=== PATIENT | female | born 1960 | race Caucasian/White ===

== ENCOUNTER 2016-12-12 06:12 | Outpatient (CLI) | payer OTHER ==
[2016-12-12] MEDS ORDERED: IOPAMIDOL-300 50 ML VIAL PO ONE (07:33)
[2016-12-12] MEDS ORDERED: IOPAMIDOL-300 100 ML VIAL IVP ONE (07:33)
--- NOTE | 2016-12-12 10:59 | CT Report ---
CT OF THE ABDOMEN AND PELVIS WITH CONTRAST: 12/12/2016 CLINICAL INDICATION: Weight loss, fatigue, left-sided pain. TECHNIQUE: Axial CT images of the abdomen and pelvis were obtained with 100 mL of Isovue-300 intraven ously as well as oral contrast. No previous CT is available for comparison. FINDINGS: Limited evaluation of the lung bases appears unremarkable. ABDOMEN: The liver, pancreas, kidneys and adrenal glands appear unremarkable. The spleen demonstrates calcifications of old granulomatous disease. A calcified gallstone is seen in an otherwise unremarka ble gallbladder. No bowel dilatation, free gas, or free fluid is present. No abdominal adenopathy is seen. PELVIS: The pelvic organs appear unremarkable No pelvic adenopathy or free fluid is present. The appe ndix is seen in the right lower quadrant, and is normal in caliber. No free fluid or pelvic adenopath y is identified. The osseous structures demonstrate degenerative and postsurgical changes. IMPRESSION: NO EVIDENT ETIOLOGY FOR PATIENT'S WEIGHT LOSS AND ABDOMINAL PAIN. CHOLELITHIASIS. In accordance with CT protocol optimization, one or more of the following dose reduction techniques w ere utilized for this exam: automated exposure control, adjustment of mA and/or KV based on patient size, or use of iterative reconstructive technique. JOB #: [id number] EXT JOB #:[id number]
== END 2016-12-12 06:13 | disposition home or self-care (01) ==
LOC: DI 06:12
PROVIDERS: ATTEND Physician Assistant Medical
DX: R10.12 Left upper quadrant pain (principal); R10.32 Left lower quadrant pain; R63.4 Abnormal weight loss; R53.83 Other fatigue; K80.20 Calculus of gallbladder without cholecystitis without obstruction
CPT/HCPCS: 74177; Q9967

== ENCOUNTER 2016-12-29 10:16 | Outpatient (CLI) | payer MEDICAID ==
--- NOTE | 2017-01-01 12:48 | Mammography Report ---
DIGITAL SCREENING MAMMOGRAM: 12/29/2016 CLINICAL INDICATION: A 56-year-old for screening. COMPARISON: Films from [place], [place] dated 09/14/2014. TECHNIQUE: Routine CC and MLO projections were obtained of the breasts as well as bilateral laterall y exaggerated craniocaudal views. FINDINGS: The breasts demonstrate heterogeneously dense fibroglandular parenchyma bilaterally. [place] bro, typically benign calcifications are present. No suspicious masses, clustered microcalcificatio ns, or regions of architectural distortion are identified. IMPRESSION: BENIGN FINDINGS. RECOMMENDATION: Routine annual screening unless otherwise clinically indicated. BIRADS CATEGORY 2 - BENIGN FINDINGS. STANDARD QUALIFYING STATEMENTS 1. This examination was reviewed with the aid of Computer-Aided Detection (CAD). 2. A negative or benign imaging report should not delay biopsy if clinically suspicious findings are present. Consider surgical consultation if warranted. More than 5% of cancers are not identified by i maging. 3. Dense breasts may obscure an underlying neoplasm. JOB #: [id number] EXT JOB #:[id number]
== END 2016-12-29 10:17 | disposition home or self-care (01) ==
LOC: DI.S 10:16
PROVIDERS: ATTEND Physician Assistant Medical
DX: Z12.31 Encounter for screening mammogram for malignant neoplasm of breast (principal)
CPT/HCPCS: 77067

== ENCOUNTER 2017-07-30 14:57 | Outpatient (CLI) | payer OTHER ==
[2017-07-30 17:51] LABS: BASOPHILS % (AUTO) 0.5 %; EOSINOPHILS # (AUTO) 0.1 10^3/uL (0.0-0.7); HGB - HEMOGLOBIN 13.5 g/dL (12.0-16.0); LYMPHOCYTES # (AUTO) 1.3 10^3/uL (1.5-3.5); MEAN CORPUSCULAR HEMOGLOBIN 30.2 pg (27.0-31.0); MEAN CORPUSCULAR HGB CONC 33.4 g/dL (32.0-36.0); MEAN CORPUSCULAR VOLUME 90.5 fL (81.0-99.0); MEAN PLATELET VOLUME 7.4 fL (7.9-10.8); MONOCYTES # (AUTO) 0.3 10^3/uL (0.0-1.0); MONOCYTES % (AUTO) 6.3 %; NEUTROPHILS # (AUTO) 3.7 10^3/uL (1.5-6.6); NEUTROPHILS % (AUTO) 67.2 %; PLT - PLATELET COUNT 358 10^3/uL (130-450); RED BLOOD COUNT 4.47 10^6/uL (4.20-5.40); RED CELL DISTRIBUTION WIDTH 12.9 % (12.0-15.0); WHITE BLOOD COUNT 5.5 x10^3/uL (4.8-10.8)
[2017-07-30 18:21] LABS: ALBUMIN 4.4 g/dL (3.2-5.5); ALBUMIN/GLOBULIN RATIO 1.6 (1.0-2.2); BILIRUBIN,TOTAL 0.3 mg/dL (0.2-1.0); CALCIUM 9.2 mg/dL (8.5-10.3); CREATININE 0.7 mg/dL (0.4-1.0); TOTAL PROTEIN 7.2 g/dL (6.7-8.2)
== END 2017-07-30 14:58 | disposition home or self-care (01) ==
LOC: LAB.R 14:57
PROVIDERS: ATTEND Physician Assistant Medical
DX: Z01.812 Encounter for preprocedural laboratory examination (principal); M18.11 Unilateral primary osteoarthritis of first carpometacarpal joint, right hand
CPT/HCPCS: 80053; 85025

== ENCOUNTER 2018-07-18 12:28 | Emergency (ER) | payer OTHER ==
[2018-07-18] MEDS ORDERED: HYDROmorphone 1 MG/ML CARPUJECT IVP STA ×2 (13:07→16:00)
[2018-07-18] MEDS ORDERED: SODIUM CHLORIDE 0.9% 1,000 ML IV ONE (13:07)
[2018-07-18] MEDS ORDERED: METOCLOPRAMIDE 10 MG/2 ML VIAL IVP STA (13:08)
--- NOTE | 2018-07-18 13:11 | ED Physician Documentation ---
PD HPI HEADACHE - Stated complaint Stated Complaint: HEADACHE INTO NECK/POST OP - Chief complaint Chief Complaint: Heent - History obtained from History obtained from: Patient - History of Present Illness Timing - onset: Last night (This is a 57-year-old woman who had a toe surgery couple of days ago. Postoperatively her course was complicated with what sounds like bradycardia and she was referred to the emergency department there and had what sounds like a pulmonary embolism CT which was negative. She is on postoperative Lovenox. She had a very mild headache when she went to bed last night but then was awoken by a more severe headache at 3 AM. It is an occipital headache. It feels like throbbing. She is light sensitive and nauseous but has not vomited. Initially she says it was the worst headache of her life but then also admits that she had a similar headache 8 years ago. 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 She was on Coumadin for a while. She is not on blood thinners now chronically but again is on postoperative prophylactic Lovenox once a day.) Review of Systems Constitutional: reports: Reviewed and negative Throat: reports: Reviewed and negative Cardiac: reports: Reviewed and negative Respiratory: reports: Reviewed and negative GI: reports: Abdominal Pain (mild LUQ), Nausea. 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 Cardiovascular: Vascular surgery - Present Medications Home Medications: Ambulatory Orders Medication Instructions Recorded Confirmed Enoxaparin [Lovenox] 07/18/18 Hydrocodone/Acetaminophen 1 - 2 each PO Q6H PRN #14 tablet 07/18/18 [Hydrocodon-Acetaminophen 5-325] Metoclopramide [Reglan] 10 mg PO Q6H PRN #20 tablet 07/18/18 oxyCODONE [Roxicodone] 07/18/18 - Allergies Allergies/Adverse Reactions: Allergies Allergy/AdvReac Type Severity Reaction Status Date / Time No Known Drug Allergies Allergy Verified 07/18/18 12:40 - Social History Does the pt smoke?: No Smoking Status: Never smoker Does the pt drink ETOH?: Yes Does the pt have substance abuse?: Yes - Family History Family history: reports: Non contributory - Immunizations Immunizations are current?: Yes PD ED PE NORMAL - Vitals Vital signs reviewed: Yes - General General: Alert and oriented X 3, No acute distress - HEENT HEENT: PERRL, EOMI - Neck Neck: Supple, no meningeal sign, No bony TTP - Cardiac Cardiac: RRR, No murmur - Respiratory Respiratory: No respiratory distress, Clear bilaterally - Abdomen Abdomen: Normal bowel sounds, Soft, Non tender - Back Back: No CVA TTP, No spinal TTP - Derm Derm: Normal color, Warm and dry - Extremities Extremities: Other (RLE in boot/wrap) - Neuro Neuro: Alert and oriented X 3, Normal speech Results - Vitals Vitals: Vital Signs - 24 hr 07/18/18 07/18/18 12:34 15:18 Temperature 36.5 C Heart Rate 73 50 L Respiratory 20 14 Rate Blood Pressure 144/49 H 135/75 H O2 Saturation 97 98 Oxygen O2 Source Room air - EKG (time done) 1251 Rate: Rate (enter#) (63) Rhythm: NSR [place]: Normal Intervals: Other (IVCD QRSd 127msec) Ischemia: Non specific changes Computer interpretation: Agree with computer - Labs Labs: Laboratory Tests 07/18/18 07/18/18 07/18/18 13:00 13:00 13:00 WBC 8.4 RBC 4.08 L Hgb 12.6 Hct 35.8 L MCV 87.7 MCH 30.8 MCHC 35.1 RDW 12.9 Plt Count 259 MPV 7.0 L Neut # (Auto) 6.2 Lymph # (Auto) 1.6 [place] # (Auto) 0.4 Eos # (Auto) 0.1 Baso # (Auto) 0.0 Absolute Nucleated RBC 0.00 Nucleated RBC % 0.0 PT 11.4 INR 1.0 Sodium 138 Potassium 3.7 Chloride 103 Carbon Dioxide 27 Anion Gap 8.0 BUN 8 Creatinine 0.5 Estimated GFR (MDRD) 127 Glucose 102 H Calcium 9.1 Total Bilirubin 0.5 AST 22 ALT 15 Alkaline Phosphatase 66 Total Protein 6.5 L Albumin 3.8 Globulin 2.7 Albumin/Globulin Ratio 1.4 Lipase 29 - Rads (name of study) CTA Head and neck Radiology: EMP read contemporaneously (No acute abnormalities, no subarachnoid hemorrhage. There is a possible aneurysm at the basilar tip measuring 4.4 x 5.9 x 5.2 mm and an infundibulum or small aneurysms from the right supraclinoid ICA.) PD MEDICAL DECISION MAKING - ED course ED course: This is a 57-year-old woman who just had surgery for her foot who presents with a headache. Is not the worst of her life. The pattern is hard to get from her, she says it was abrupt in onset and woke her up at 3 AM but admits she went to bed with a headache 2. There is a small aneurysm potentially from the basilar tip and follow-up with neurology/neurosurgery was recommended for confirmation as the radiologist was not convinced it was not variant anatomy. Departure - Departure Disposition: 01 Home, Self Care Clinical Impression: Basilar artery aneurysm Headache Qualifiers: Headache type: tension-type Headache chronicity pattern: acute headache Intractability: not intractable Qualified Code(s): G44.209 - Tension-type headache, unspecified, not intractable Condition: Good Record reviewed to determine appropriate education?: Yes Instructions: ED Cephalgia Unspecified Prescriptions: Hydrocodone/Acetaminophen [Hydrocodon-Acetaminophen 5-325] 1 - 2 each PO Q6H PRN #14 tablet PRN Reason: pain Metoclopramide [Reglan] 10 mg PO Q6H PRN #20 tablet PRN Reason: nausea or headache Comments: As discussed you should follow-up with your primary care for physician for referral to a neurologist or neurosurgeon. The radiologist felt she may have a 4.4 x 5.9 x 5.2 mm aneurysm of the basilar artery. There is no evidence of complication of this today. Will probably need a confirmatory study such as an MR angiogram. Return for new or worsening symptoms.
[2018-07-18 13:14] LABS: BASOPHILS % (AUTO) 0.4 %; EOSINOPHILS # (AUTO) 0.1 10^3/uL (0.0-0.7); EOSINOPHILS % (AUTO) 1.3 %; HGB - HEMOGLOBIN 12.6 g/dL (12.0-16.0); LYMPHOCYTES # (AUTO) 1.6 10^3/uL (1.5-3.5); MEAN CORPUSCULAR HEMOGLOBIN 30.8 pg (27.0-31.0); MEAN CORPUSCULAR HGB CONC 35.1 g/dL (32.0-36.0); MEAN CORPUSCULAR VOLUME 87.7 fL (81.0-99.0); MONOCYTES # (AUTO) 0.4 10^3/uL (0.0-1.0); NEUTROPHILS # (AUTO) 6.2 10^3/uL (1.5-6.6); NEUTROPHILS % (AUTO) 74.3 %; PLT - PLATELET COUNT 259 10^3/uL (130-450); RED BLOOD COUNT 4.08 10^6/uL (4.20-5.40); RED CELL DISTRIBUTION WIDTH 12.9 % (12.0-15.0); WHITE BLOOD COUNT 8.4 x10^3/uL (4.8-10.8)
[2018-07-18 13:21] LABS: PT - PROTHROMBIN TIME 11.4 secs (9.9-12.6)
[2018-07-18] MEDS ORDERED: IOVERSOL 320 100 ML VIAL IVP ONE ×2 (13:22→17:59)
[2018-07-18 13:24] LABS: ALBUMIN 3.8 g/dL (3.2-5.5); ALBUMIN/GLOBULIN RATIO 1.4 (1.0-2.2); BILIRUBIN,TOTAL 0.5 mg/dL (0.2-1.0); CALCIUM 9.1 mg/dL (8.5-10.3); CREATININE 0.5 mg/dL (0.4-1.0); TOTAL PROTEIN 6.5 g/dL (6.7-8.2)
--- NOTE | 2018-07-18 15:46 | CT Report ---
Reason: Headache Procedure Date: 07/18/2018 Accession Number: [id number] / [id number] Procedure: CT - Head Angio CPT Code: FULL RESULT: EXAM: CT ANGIOGRAM HEAD AND NECK. CT SCAN HEAD WITHOUT AND WITH CONTRAST. EXAM DATE: 07/18/2018 01:55 PM. CLINICAL HISTORY:Headache. COMPARISON:None. TECHNIQUE: Routine axial helical CTA imaging was performed from the aortic arch through the [place] of [place]. Routine axial CT imaging of the head was performed prior to and following contrast administration. Reconstructions: Routine multiplanar 3D MIP reconstructions. IV contrast: OPTI 320 80 mL. NASCET Criteria are used for stenosis measurements. In accordance with CT protocol optimization, one or more of the following dose reduction techniques were utilized for this exam: automated exposure control, adjustment of mA and/or KV based on patient size, or use of iterative reconstructive technique. FINDINGS: CT SCAN HEAD: Parenchyma: No intraparenchymal hemorrhage. No evidence of mass, midline shift, or CT findings of acute infarction. Barry-white differentiation is distinct. Extraaxial Spaces: Normal for age. No subdural or epidural collections identified. Ventricles: Normal in size and position. Sinuses and Orbits: Imaged paranasal sinuses, orbits, and mastoids show no significant abnormality. Bones: No evidence of fracture or calvarial defect. Other: Minimal vascular calcifications of the cavernous ICA segments. CT ANGIOGRAM HEAD AND NECK: The aortic arch appears normal. The left common carotid artery appears to arise from the right brachiocephalic artery. RIGHT: Common Carotid Artery: Patent without significant stenosis. Carotid Bulb: There is no significant atherosclerotic plaque at the bifurcation and siphon. Stenosis at the bifurcation by NASCET criteria: No significant stenosis. Internal Carotid Artery: Tortuosity of the cervical ICA with no high-grade stenosis or dissection seen. Minimal vascular calcifications of the cavernous ICA segments with no high-grade stenosis. There is an inferomedially projecting outpouching arising from the right supraclinoid ICA measuring 1.3 x 1.9 mm (series 2, image 439). External Carotid Artery: Unremarkable. Vertebral Artery: Patent without significant stenosis. No evidence of dissection. No aneurysm. Anterior Cerebral Artery: Patent without significant stenosis, aneurysm, or vascular malformation. Middle Cerebral Artery: Patent without significant stenosis, aneurysm, or vascular malformation. Posterior Cerebral Artery: Patent without significant stenosis, aneurysm, or vascular malformation. Posterior Communicating Artery: Patent. No aneurysm. LEFT: Common Carotid Artery: Patent without significant stenosis. Carotid Bulb: There is no significant atherosclerotic plaque at the bifurcation and siphon. Stenosis at the bifurcation by NASCET criteria: No significant stenosis. Internal Carotid Artery: Tortuosity of the cervical ICA with no high-grade stenosis or dissection seen. Minimal vascular calcifications of the cavernous ICA segments with no high-grade stenosis. No evidence of aneurysm along the intracranial ICA. External Carotid Artery: Unremarkable. Vertebral Artery: Patent without significant stenosis. No evidence of dissection. No aneurysm. Anterior Cerebral Artery: Patent without significant stenosis, aneurysm, or vascular malformation. Middle Cerebral Artery: Patent without significant stenosis, aneurysm, or vascular malformation. Posterior Cerebral Artery: Patent without significant stenosis, aneurysm, or vascular malformation. Posterior Communicating Artery: Patent. No aneurysm. CENTRAL: Anterior Communicating Artery: Patent. No aneurysm. Basilar Artery: There is a bulbous appearance to the basilar tip measuring 4.4 x 5.9 x 5.2 cm (CC by TR by AP). DURAL VENOUS SINUSES AND MAJOR CENTRAL VEINS: Patent. OTHER: The visualized pharynx and larynx appear normal. Major salivary glands appear normal. Thyroid gland appears normal. No cervical lymphadenopathy or necrotic lymph nodes seen. Soft tissues of the neck appear normal. Pleural parenchymal scarring of the visualized lung apices. There appears to be dependent atelectatic changes. No definite pulmonary nodule or mass seen. Postsurgical changes of C5-C7 ACDF as well as C5-C6 and C6-C7 diskectomy with interbody fusion graft placement. No acute fracture or traumatic subluxation of the cervical spine. Shortening of the normal cervical lordosis. Multilevel degenerative changes. No suspicious osseous lesion. POST-CONTRAST HEAD: No abnormal enhancement. IMPRESSION: CT SCAN HEAD: 1. No definite acute intracranial pathology seen; specifically no acute infarct, acute intracranial hemorrhage, mass, hydrocephalus, or midline shift. No abnormal postcontrast enhancement. If there is clinical concern for acute stroke or symptoms persist an MR brain could be considered to evaluate for small or subtle pathology. ASPECTS: 10R/10L CT ANGIOGRAM NECK: 1. Vasculature of the neck demonstrates no significant stenosis or dissection. CT ANGIOGRAM HEAD: 1. No large vessel occlusion. 2. There is a bulbous appearance to the basilar tip measuring 4.4 x 5.9 x 5.2 cm (cc by TR by AP). Finding suspicious for potential aneurysm. 3. There is an inferomedially projecting outpouching arising from the right supraclinoid ICA measuring 1.3 x 1.9 mm (series 2, image 439). Finding may represent infundibulum though a small aneurysm cannot be entirely excluded. 4. No definite intracranial arterial stenosis seen. OTHER 1. Postsurgical changes of C5-C7 ACDF as well as C5-C6 and C6-C7 diskectomy with interbody fusion graft placement. [facility] ADDENDUM: 07/18/18 15:54 IMPRESSION: CT SCAN HEAD: 1. No definite acute intracranial pathology seen; specifically no acute infarct, acute intracranial hemorrhage, mass, hydrocephalus, or midline shift. No abnormal postcontrast enhancement. If there is clinical concern for acute stroke or symptoms persist an MR brain could be considered to evaluate for small or subtle pathology. ASPECTS: 10R/10L CT ANGIOGRAM NECK: 1. Vasculature of the neck demonstrates no significant stenosis or dissection. CT ANGIOGRAM HEAD: 1. No large vessel occlusion. 2. There is a bulbous appearance to the basilar tip measuring 4.4 x 5.9 x 5.2 mm(cc by TR by AP). Finding suspicious for potential aneurysm. 3. There is an inferomedially projecting outpouching arising from the right supraclinoid ICA measuring 1.3 x 1.9 mm (series 2, image 439). Finding may represent infundibulum though a small aneurysm cannot be entirely excluded. 4. No definite intracranial arterial stenosis seen. OTHER 1. Postsurgical changes of C5-C7 ACDF as well as C5-C6 and C6-C7 diskectomy with interbody fusion graft placement. Findings discussed with Dr Koch at 1555 hs on 07/18/2017 [facility]
[2018-07-18 16:30] VITALS: BP 125/66
== END 2018-07-18 16:30 | disposition home or self-care (01) ==
LOC: ED 12:28
DX: I72.5 Aneurysm of other precerebral arteries (principal); G44.209 Tension-type headache, unspecified, not intractable; Z98.890 Other specified postprocedural states
CPT/HCPCS: 36415; 70496; 70498; 80053; 83690; 85025; 85610; 93005; 96361; 96374; 96376; 99284; J1170; J2765; Q9967

== ENCOUNTER 2019-03-18 17:50 | Emergency (ER) | payer OTHER ==
[2019-03-18 17:58] VITALS: BP 131/97
--- NOTE | 2019-03-18 18:09 | ED Physician Documentation ---
History of Present Illness - Stated complaint Stated Complaint: FALL/HEAD INJURY - Chief complaint Chief Complaint: General - History obtained from History obtained from: Patient - History of Present Illness Timing: Today (About 4 hours ago she tripped over dog and fell backwards hitting the back of her head on asphalt. There is no loss of consciousness, no headache, no vomiting. She also has a scrape on her left elbow. No other injuries. Tetanus is up-to-date. She has a lump on the back of her head, no other acute complaints.) Review of Systems Constitutional: denies: Fever, Chills Eyes: denies: Loss of vision, Decreased vision, Photophobia Ears: denies: Loss of hearing, Ear pain Nose: denies: Rhinorrhea / runny nose, Epistaxis GI: denies: Nausea, Vomiting PD PAST MEDICAL HISTORY - Past Medical History Cardiovascular: Other Respiratory: None, Other Endocrine/Autoimmune: None GI: Other HEENT: None Psych: Depression Musculoskeletal: Osteoarthritis - Past Surgical History Past Surgical History: Yes General: Appendectomy, Other Ortho: Carpal Tunnel surgery, Spine surgery, 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 Cardiovascular: Vascular surgery - Present Medications Home Medications: Ambulatory Orders Medication Instructions Recorded Confirmed Enoxaparin [Lovenox] 07/18/18 Hydrocodone/Acetaminophen 1 - 2 each PO Q6H PRN #14 tablet 07/18/18 [Hydrocodon-Acetaminophen 5-325] Metoclopramide [Reglan] 10 mg PO Q6H PRN #20 tablet 07/18/18 oxyCODONE [Roxicodone] 07/18/18 - Allergies Allergies/Adverse Reactions: Allergies Allergy/AdvReac Type Severity Reaction Status Date / Time No Known Drug Allergies Allergy Verified 03/18/19 17:58 - Social History Does the pt smoke?: No Smoking Status: Never smoker Does the pt drink ETOH?: Yes Does the pt have substance abuse?: Yes - Immunizations Immunizations are current?: Yes PD ED PE NORMAL - Vitals Vital signs reviewed: Yes - General General: Alert and oriented X 3, No acute distress - HEENT HEENT: PERRL, EOMI, Other (She has a firm hematoma on the occiput, no skull tenderness.) - Neck Neck: Supple, no meningeal sign, No bony TTP - Extremities Extremities: Other (There is a small nickel sized abrasion over the elbow without tenderness or limited range of motion) - Neuro Neuro: Alert and oriented X 3, 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 Really nothing to suggest the need for advanced imaging. Watchful waiting was advised. Her elbow abrasion was cleansed and bandaged. Departure - Departure Disposition: 01 Home, Self Care Clinical Impression: Contusion of occipital region of scalp Qualifiers: Encounter type: initial encounter Qualified Code(s): S00.03XA - Contusion of scalp, initial encounter Abrasion of left elbow Qualifiers: Encounter type: initial encounter Qualified Code(s): S50.312A - Abrasion of left elbow, initial encounter Condition: Good Record reviewed to determine appropriate education?: Yes Instructions: ED Wound Care, ED Head Injury Closed Comments: If you develop a headache, nausea, or other new symptoms please return immediately for reevaluation.
== END 2019-03-18 18:00 | disposition home or self-care (01) ==
LOC: ED 17:50
DX: S00.03XA Contusion of scalp, initial encounter (principal); S50.312A Abrasion of left elbow, initial encounter; W01.198A Fall on same level from slipping, tripping and stumbling with subsequent striking against other object, initial encounter; Y92.008 Other place in unspecified non-institutional (private) residence as the place of occurrence of the external cause
CPT/HCPCS: 99281; 99282

== ENCOUNTER 2019-04-18 12:56 | Emergency (ER) | payer OTHER ==
--- NOTE | 2019-04-18 13:25 | XRAY Report ---
Reason: cough Procedure Date: 04/18/2019 Accession Number: [id number] / [id number] Procedure: XR - Chest 2 View X-Ray CPT Code: 73980 FULL RESULT: EXAM: CHEST RADIOGRAPHY EXAM DATE: 04/18/2019 01:13 PM. CLINICAL HISTORY: Cough. COMPARISON: CHEST 1 VIEW 11/07/2015 1:19 PM. TECHNIQUE: 2 views. FINDINGS: Lungs/Pleura: Increased lung markings. Central bronchial cuffing. No focal opacity. No effusions. Mediastinum: Stable Other: ACDF IMPRESSION: Increased lung markings with central bronchial cuffing may be due to reactive airways disease or bronchitis [facility]
[2019-04-18] MEDS ORDERED: BACITRACIN ZINC OINT 14 GM TOP ONE (14:08)
--- NOTE | 2019-04-18 14:45 | ED Physician Documentation ---
PD HPI URI - Stated complaint Stated Complaint: SOA/CHEST PX/COUGH - Chief complaint Chief Complaint: Resp - History obtained from History obtained from: Patient - History of Present Illness Timing - onset: Today (58-year-old woman was caring for her sick grandmother who has pneumonia. She became suddenly sick yesterday with a nonproductive cough, sharp central chest pain when she coughs and shortness of breath. No fevers. She has no underlying heart or lung disease. 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 Cardiovascular: Vascular surgery - Present Medications Home Medications: Ambulatory Orders Medication Instructions Recorded Confirmed Enoxaparin [Lovenox] 07/18/18 Hydrocodone/Acetaminophen 1 - 2 each PO Q6H PRN #14 tablet 07/18/18 [Hydrocodon-Acetaminophen 5-325] Metoclopramide [Reglan] 10 mg PO Q6H PRN #20 tablet 07/18/18 oxyCODONE [Roxicodone] 07/18/18 Albuterol Sulf [Ventolin Hfa 1 - 2 puffs INH Q4HR PRN #1 inhaler 04/18/19 Inhaler] Azithromycin [Zithromax] 1 tab PO DAILY #6 tablet 04/18/19 guaiFENesin/CODEINE [Robitussin AC] 5 - 10 ml PO Q6H PRN #120 ml 04/18/19 predniSONE [Deltasone] 60 mg PO DAILY 5 Days #15 tablet 04/18/19 - Allergies Allergies/Adverse Reactions: Allergies Allergy/AdvReac Type Severity Reaction Status Date / Time morphine AdvReac Nausea Verified 04/18/19 13:00 - Social History Does the pt smoke?: No Smoking Status: Never smoker Does the pt drink ETOH?: Yes Does the pt have substance abuse?: Yes - Immunizations Immunizations are current?: Yes PD ED PE NORMAL - Vitals Vital signs reviewed: Yes - General General: Alert and oriented X 3, Other (Frequent bronchitic cough) - HEENT HEENT: PERRL, EOMI - Neck Neck: Supple, no meningeal sign, No bony TTP - Cardiac Cardiac: RRR, No murmur - Respiratory Respiratory: Other (Rhonchorous especially at the right base, nonlabored) - Abdomen Abdomen: Soft, Non tender - Extremities Extremities: No edema, No calf tenderness / cord - Neuro Neuro: Alert and oriented X 3, Normal speech Results - Vitals Vitals: Vital Signs - 24 hr 04/18/19 13:00 Temperature 37.1 C Heart Rate 75 Respiratory 18 Rate Blood Pressure 121/68 O2 Saturation 97 Oxygen O2 Source Room air - Rads (name of study) 2V CHEST Radiology: EMP read contemporaneously (PHPBT) PD MEDICAL DECISION MAKING - ED course ED course: This is a 58-year-old woman with classic bronchitis. No evidence of PE, ACS, CHF. Departure - Departure Disposition: 01 Home, Self Care Clinical Impression: Bronchitis Condition: Good Record reviewed to determine appropriate education?: Yes Instructions: ED Upper Resp Infec Abx Tx Prescriptions: Albuterol Sulf [Ventolin Hfa Inhaler] 1 - 2 puffs INH Q4HR PRN #1 inhaler PRN Reason: Shortness Of Air/Wheezing Azithromycin [Zithromax] 1 tab PO DAILY #6 tablet guaiFENesin/CODEINE [Robitussin AC] 5 - 10 ml PO Q6H PRN #120 ml PRN Reason: Cough predniSONE [Deltasone] 60 mg PO DAILY 5 Days #15 tablet Comments: Call your doctor to arrange a follow-up appointment, make the next available appointment. In the interim, return anytime if worse or if new symptoms develop.
[2019-04-18 14:47] VITALS: BP 117/79
== END 2019-04-18 14:51 | disposition home or self-care (01) ==
LOC: ED 12:56
DX: J40 Bronchitis, not specified as acute or chronic (principal)
CPT/HCPCS: 71046; 99284

== ENCOUNTER 2019-04-23 18:06 | Emergency (ER) | payer OTHER ==
--- NOTE | 2019-04-23 19:57 | XRAY Report ---
Reason: cough Procedure Date: 04/23/2019 Accession Number: [id number] / [id number] Procedure: XR - Chest 2 View X-Ray CPT Code: 24614 FULL RESULT: EXAM: CHEST RADIOGRAPHY EXAM DATE: 04/23/2019 07:44 PM. CLINICAL HISTORY: Cough COMPARISON: CHEST 2 VIEW 04/18/2019 1:07 PM. TECHNIQUE: 2 views. FINDINGS: Lungs/Pleura: No focal opacities evident. No pleural effusion. No pneumothorax. Normal volumes. Mediastinum: Heart and mediastinal contours are unremarkable. Other: Postsurgical changes partially visualized in the lower cervical spine and lumbar spine. IMPRESSION: Normal 2-view chest radiography. [facility]
[2019-04-23] MEDS ORDERED: ALBUTEROL NEB 2.5 MG/3 ML INH STA (20:16)
[2019-04-23] MEDS ORDERED: predniSONE 20 MG TABLET PO STA (20:16)
[2019-04-23] MEDS ORDERED: IPRATROPIUM/ALBUTEROL 3 ML NEB INH STA (21:08)
[2019-04-23 21:30] VITALS: BP 132/70
--- NOTE | 2019-04-23 21:42 | ED Physician Documentation ---
PD HPI URI - Stated complaint Stated Complaint: COUGH - Chief complaint Chief Complaint: Resp - History obtained from History obtained from: Patient - History of Present Illness Timing - onset: How many weeks ago (1) Timing duration: Weeks (1) Timing details: Gradual onset Pain level max: 6 Pain level now: 5 Associated symptoms: Nasal congestion, Rhinorrhea, Dry cough, Dyspnea (wheezing). No: Fever, Chills Contributing factors: Sick contact Improves by: Rest, MDI/nebulizer Worsened by: Activity, Breathing Review of Systems Constitutional: denies: Fever, Chills Respiratory: reports: Dyspnea, Wheezing GI: denies: Vomiting Skin: denies: Rash PD PAST MEDICAL HISTORY - Past Medical History Past Medical History: Yes Cardiovascular: Other Respiratory: None, Other Endocrine/Autoimmune: None GI: Other HEENT: None Psych: Depression Musculoskeletal: Osteoarthritis - Past Surgical History Past Surgical History: Yes General: Appendectomy, Other Ortho: Carpal Tunnel surgery, Spine surgery, 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 Cardiovascular: Vascular surgery - Present Medications Home Medications: Ambulatory Orders Medication Instructions Recorded Confirmed Enoxaparin [Lovenox] 07/18/18 Hydrocodone/Acetaminophen 1 - 2 each PO Q6H PRN #14 tablet 07/18/18 [Hydrocodon-Acetaminophen 5-325] Metoclopramide [Reglan] 10 mg PO Q6H PRN #20 tablet 07/18/18 oxyCODONE [Roxicodone] 07/18/18 Albuterol Sulf [Ventolin Hfa 1 - 2 puffs INH Q4HR PRN #1 inhaler 04/18/19 Inhaler] Azithromycin [Zithromax] 1 tab PO DAILY #6 tablet 04/18/19 guaiFENesin/CODEINE [Robitussin AC] 5 - 10 ml PO Q6H PRN #120 ml 04/18/19 predniSONE [Deltasone] 60 mg PO DAILY 5 Days #15 tablet 04/18/19 Albuterol 2.5 mg INH Q4H PRN #30 neb 04/23/19 Benzonatate [Tessalon Perle] 100 - 200 mg PO TID PRN #30 capsule 04/23/19 predniSONE [Deltasone] 10 mg PO [id number] #42 tab 04/23/19 - Allergies Allergies/Adverse Reactions: Allergies Allergy/AdvReac Type Severity Reaction Status Date / Time morphine AdvReac Nausea Verified 10/14/19 13:00 - Social History Does the pt smoke?: No Smoking Status: Never smoker Does the pt drink ETOH?: Yes Does the pt have substance abuse?: Yes - Immunizations Immunizations are current?: Yes PD ED PE NORMAL - Vitals Vital signs reviewed: Yes - General General: Alert and oriented X 3, No acute distress - HEENT HEENT: Ears normal, Moist mucous membranes, Pharynx benign - Neck Neck: Supple, no meningeal sign - Cardiac Cardiac: RRR - Respiratory Respiratory: No respiratory distress, Other (Very diminished breath sounds bilaterally with a long expiratory wheeze.) - Abdomen Abdomen: Soft, Non tender, Non distended - Derm Derm: Warm and dry - Neuro Neuro: Alert and oriented X 3 - Psych Psych: Normal mood, Normal affect Results - Vitals Vitals: Vital Signs - 24 hr 04/23/19 04/23/19 04/23/19 18:20 21:00 21:16 Temperature 36.5 C Heart Rate 83 78 82 Respiratory 18 20 18 Rate Blood Pressure 104/65 O2 Saturation 97 04/23/19 21:30 Temperature Heart Rate 77 Respiratory 18 Rate Blood Pressure 132/70 H O2 Saturation 100 Oxygen O2 Source Room air - Rads (name of study) Chest x-ray Radiology: Prelim report reviewed, EMP read contemporaneously, See rad report (No acute disease) PD MEDICAL DECISION MAKING - ED course Complexity details: reviewed results, re-evaluated patient, considered differential, d/w patient ED course: 58-year-old female presents to the emergency department with what appears to be a viral URI with wheezing. Given steroids, DuoNeb, albuterol. Breathing greatly improved and feels much better. No pneumonia. Patient counseled regarding signs and symptoms for which I believe and urgent re-evaluation would be necessary. Patient with good understanding of and agreement to plan and is comfortable going home at this time This document was made in part using voice recognition software. While efforts are made to proofread this document, sound alike and grammatical errors may occur. Departure - Departure Disposition: 01 Home, Self Care Clinical Impression: Viral URI Condition: Good Instructions: ED URI Viral W Wheezing Follow-Up: your,doctor in 1-2 weeks if not better [Other] Prescriptions: Albuterol 2.5 mg INH Q4H PRN #30 neb PRN Reason: Wheezing Benzonatate [Tessalon Perle] 100 - 200 mg PO TID PRN #30 capsule PRN Reason: Cough predniSONE [Deltasone] 10 mg PO [id number] #42 tab Comments: Return if you worsen. Follow-up with your doctor for further care. The average cough in a non-smoker lasts approximately 18 days. This is a viral illness and antibiotics will not help with this. Discharge Date/Time: 04/23/19 21:49
== END 2019-04-23 21:49 | disposition home or self-care (01) ==
LOC: ED 18:06
DX: J06.9 Acute upper respiratory infection, unspecified (principal)
CPT/HCPCS: 71046; 94640; 99284; J7512

== ENCOUNTER 2019-05-12 20:59 | Outpatient (CLI) | payer OTHER | END 2019-05-12 21:00 | disposition critical access hospital (66) | LOC: EMS 20:59 | PROVIDERS: ATTEND Surgery | DX: R06.02 Shortness of breath (principal) | CPT/HCPCS: A0425; A0427 ==

== ENCOUNTER 2019-05-12 21:30 | Inpatient (IN) | payer OTHER ==
[2019-05-12] MEDS ORDERED: LORazepam 2 MG/ML VIAL IM STA (21:34)
[2019-05-12] MEDS ORDERED: IPRATROPIUM/ALBUTEROL 3 ML NEB INH STA (21:40)
[2019-05-12] MEDS ORDERED: MAGNESIUM SULFATE 2 GRAM 2 GM/50 ML BAG IV ONE (21:41)
[2019-05-12] MEDS ORDERED: KETAMINE 500 MG/10 ML VIAL IM STA (21:47)
[2019-05-12] MEDS ORDERED: LORazepam 2 MG/ML VIAL ONE (21:48)
[2019-05-12 21:55] LABS: MUDS CUTOFF CONCENTRATIONS CUTOFF CONC BELOW:
--- NOTE | 2019-05-12 22:02 | ED Physician Documentation ---
PD HPI DYSPNEA - Stated complaint Stated Complaint: SOA, AGITATED - Chief complaint Chief Complaint: Resp - History obtained from History obtained from: Patient, EMS - History of Present Illness Timing - onset: How many weeks ago (3) Timing - onset during: Rest Timing - duration: Weeks (3) Timing - details: Gradual onset, Still present, Waxing and waning Inciting event(s): URI Improved by: O2, Inhaler/neb, Steroids Worsened by: Coughing Associated symptoms: Cough, Wheezing. 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 She has been placed on a course of prednisone and azithromycin and improved somewhat subsequently she again became worse was reevaluated in the emergency department and treated a second time with a second course of prednisone. The boyfriend indicates that she has had persistent wheezing the past 3 weeks, has been getting relief with nebs and tonight symptoms worsened. 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 Cardiovascular: Vascular surgery - Present Medications Home Medications: Ambulatory Orders Medication Instructions Recorded Confirmed Enoxaparin [Lovenox] 07/18/18 Hydrocodone/Acetaminophen 1 - 2 each PO Q6H PRN #14 tablet 07/18/18 [Hydrocodon-Acetaminophen 5-325] Metoclopramide [Reglan] 10 mg PO Q6H PRN #20 tablet 07/18/18 oxyCODONE [Roxicodone] 07/18/18 Albuterol Sulf [Ventolin Hfa 1 - 2 puffs INH Q4HR PRN #1 inhaler 04/18/19 Inhaler] Azithromycin [Zithromax] 1 tab PO DAILY #6 tablet 04/18/19 guaiFENesin/CODEINE [Robitussin AC] 5 - 10 ml PO Q6H PRN #120 ml 04/18/19 predniSONE [Deltasone] 60 mg PO DAILY 5 Days #15 tablet 04/18/19 Albuterol 2.5 mg INH Q4H PRN #30 neb 04/23/19 Benzonatate [Tessalon Perle] 100 - 200 mg PO TID PRN #30 capsule 04/23/19 predniSONE [Deltasone] 10 mg PO [id number] #42 tab 04/23/19 - Allergies Allergies/Adverse Reactions: Allergies Allergy/AdvReac Type Severity Reaction Status Date / Time morphine AdvReac Nausea Verified 04/18/19 13:00 - Social History Does the pt smoke?: No Smoking Status: Never smoker Does the pt drink ETOH?: Yes Does the pt have substance abuse?: Yes - Immunizations Immunizations are current?: Yes Results - Vitals Vitals: Vital Signs - 24 hr 05/12/19 05/12/19 05/12/19 21:33 21:55 22:15 Temperature 36.4 C L Heart Rate 55 L 105 H 114 H Respiratory 24 22 19 Rate Blood Pressure 159/94 H O2 Saturation 93 91 L 05/12/19 05/12/19 05/12/19 22:32 22:59 23:09 Temperature Heart Rate 119 H 105 H 117 H Respiratory 21 19 21 Rate Blood Pressure 125/87 H 115/80 O2 Saturation 97 98 Oxygen O2 Source BIPAP - EKG (time done) 2154 Rate: Rate (enter#) (110) Rhythm: Sinus tachycardia Ischemia: ST elevation c/w ischemia (borderline anterior) Compare to prior EKG: Changed from prior EKG (SPT 07-18-2018 the rate has increased, the prior T wave inversions have resolved and the subtle and borderline ST elevation has occurred) Computer interpretation: Agree with computer - Labs Labs: Laboratory Tests 05/12/19 05/12/19 05/12/19 21:43 21:43 21:53 WBC RBC Hgb Hct MCV MCH MCHC RDW Plt Count MPV Neut # (Auto) Lymph # (Auto) [place] # (Auto) Eos # (Auto) Baso # (Auto) Absolute Nucleated RBC Band Neuts % (Manual) Abnorm Lymph % (Manual) Nucleated RBC % Neutrophils # (Manual) Lymphocytes # (Manual) Monocytes # (Manual) Eosinophils # (Manual) Basophils # (Manual) Differential Comment Manual Slide Review Platelet Estimate Platelet Morphology RBC Morph Micro Appear VBG pH VBG pCO2 VBG pO2 VBG HCO3 VBG Total CO2 VBG O2 Saturation VBG Base Excess Sodium Potassium Chloride Carbon Dioxide Anion Gap BUN Creatinine Estimated GFR (MDRD) Glucose Lactic Acid Calcium Total Bilirubin AST ALT Alkaline Phosphatase Troponin I High Sens 10.0 B-Natriuretic Peptide Total Protein Albumin Globulin Albumin/Globulin Ratio Lipase Urine Color YELLOW Urine Clarity CLEAR Urine pH 6.0 Ur Specific [place] 1.025 Urine Protein NEGATIVE Urine Glucose (UA) NEGATIVE Urine Ketones NEGATIVE Urine Occult Blood NEGATIVE Urine Nitrite NEGATIVE Urine Bilirubin NEGATIVE Urine Urobilinogen 1 (NORMAL) Ur Leukocyte Esterase NEGATIVE Ur Microscopic Review NOT INDICATED Urine Culture Comments NOT INDICATED Urine Opiates Screen NEGATIVE Ur Oxycodone Screen NEGATIVE Urine Methadone Screen NEGATIVE Ur Propoxyphene Screen NEGATIVE Ur Barbiturates Screen NEGATIVE Ur Tricyclics Screen NEGATIVE Ur Phencyclidine Scrn NEGATIVE Ur Amphetamine Screen NEGATIVE U Methamphetamines Scrn NEGATIVE U Benzodiazepines Scrn NEGATIVE Urine Cocaine Screen NEGATIVE U Cannabinoids Screen NEGATIVE Ethyl Alcohol 05/12/19 05/12/19 05/12/19 21:55 21:55 21:55 WBC 23.0 H RBC 4.23 Hgb 12.9 Hct 40.7 MCV 96.2 MCH 30.5 MCHC 31.7 L RDW 13.1 Plt Count 440 MPV 8.9 Neut # (Auto) 16.7 H Lymph # (Auto) 3.5 [place] # (Auto) 0.8 Eos # (Auto) 1.7 H Baso # (Auto) 0.1 Absolute Nucleated RBC 0.00 Band Neuts % (Manual) Not Reportable Abnorm Lymph % (Manual) Not Reportable Nucleated RBC % 0.0 Neutrophils # (Manual) Not Reportable Lymphocytes # (Manual) Not Reportable Monocytes # (Manual) Not Reportable Eosinophils # (Manual) Not Reportable Basophils # (Manual) Not Reportable Differential Comment MANUAL=AUTO DIFF Manual Slide Review Indicated Platelet Estimate NORMAL (130-450,000) Platelet Morphology NORMAL APPEARANCE RBC Morph Micro Appear NORMAL APPEARANCE VBG pH VBG pCO2 VBG pO2 VBG HCO3 VBG Total CO2 VBG O2 Saturation VBG Base Excess Sodium 141 Potassium 3.4 L Chloride 101 Carbon Dioxide 31 Anion Gap 9.0 BUN 14 Creatinine 0.8 Estimated GFR (MDRD) 73 L Glucose 270 H Lactic Acid Calcium 9.2 Total Bilirubin 0.6 AST 33 ALT 23 Alkaline Phosphatase 78 Troponin I High Sens B-Natriuretic Peptide 50 Total Protein 7.0 Albumin 4.2 Globulin 2.8 Albumin/Globulin Ratio 1.5 Lipase 28 Urine Color Urine Clarity Urine pH Ur Specific [place] Urine Protein Urine Glucose (UA) Urine Ketones Urine Occult Blood Urine Nitrite Urine Bilirubin Urine Urobilinogen Ur Leukocyte Esterase Ur Microscopic Review Urine Culture Comments Urine Opiates Screen Ur Oxycodone Screen Urine Methadone Screen Ur Propoxyphene Screen Ur Barbiturates Screen Ur Tricyclics Screen Ur Phencyclidine Scrn Ur Amphetamine Screen U Methamphetamines Scrn U Benzodiazepines Scrn Urine Cocaine Screen U Cannabinoids Screen Ethyl Alcohol 05/12/19 05/12/19 05/12/19 21:55 21:55 21:55 WBC RBC Hgb Hct MCV MCH MCHC RDW Plt Count MPV Neut # (Auto) Lymph # (Auto) [place] # (Auto) Eos # (Auto) Baso # (Auto) Absolute Nucleated RBC Band Neuts % (Manual) Abnorm Lymph % (Manual) Nucleated RBC % Neutrophils # (Manual) Lymphocytes # (Manual) Monocytes # (Manual) Eosinophils # (Manual) Basophils # (Manual) Differential Comment Manual Slide Review Platelet Estimate Platelet Morphology RBC Morph Micro Appear VBG pH 7.072 L VBG pCO2 88.5 H VBG pO2 45.3 VBG HCO3 25.2 VBG Total CO2 27.9 VBG O2 Saturation 64.3 VBG Base Excess -7.0 L Sodium Potassium Chloride Carbon Dioxide Anion Gap BUN Creatinine Estimated GFR (MDRD) Glucose Lactic Acid 1.3 Calcium Total Bilirubin AST ALT Alkaline Phosphatase Troponin I High Sens B-Natriuretic Peptide Total Protein Albumin Globulin Albumin/Globulin Ratio Lipase Urine Color Urine Clarity Urine pH Ur Specific [place] Urine Protein Urine Glucose (UA) Urine Ketones Urine Occult Blood Urine Nitrite Urine Bilirubin Urine Urobilinogen Ur Leukocyte Esterase Ur Microscopic Review Urine Culture Comments Urine Opiates Screen Ur Oxycodone Screen Urine Methadone Screen Ur Propoxyphene Screen Ur Barbiturates Screen Ur Tricyclics Screen Ur Phencyclidine Scrn Ur Amphetamine Screen U Methamphetamines Scrn U Benzodiazepines Scrn Urine Cocaine Screen U Cannabinoids Screen Ethyl Alcohol 5.5 - Rads (name of study) chest Radiology: Prelim report reviewed (Impression: 1. No acute cardiopulmonary abnormality. New round 1 cm opacity overlying the right lower lung zone favored a nipple shadow. Consider repeat imaging with nipple markers for confirmation.), EMP read indepedently (On my read there is clearly an infiltrate in the right base that is new compared to most recent 04-23-19), See rad report Procedures - IVC sono (time) 9715 Bedside IVC sono: IVC measures (cm) (1.19), IVC collapsed c insp (cm) (complete), Dehydration (est 1 liter deficit) PD MEDICAL DECISION MAKING - ED course Complexity details: reviewed old records, reviewed results, re-evaluated patient, considered differential, d/w patient, d/w family ED course: 58-year-old female without a history of prior lung disease has developed wheezing and coughing over the past 3 weeks. She is been treated twice with prednisone with some improvement she is using a nebulizer at home and she has decompensated this evening and appears to have pneumonia on repeat chest x-ray. She arrives with air hunger, hypoxia, flailing and pulling her IV out. We administered ativan IM and this was inadequate for control. We administered ketamine 100mg IM and with this we were able to gain IV access, place the patient on BIPAP and administer IV magnesium, saline, rocephin, zithromax and a duo neb. The patient herself is unable to provide history secondary to respiratory distress. Departure - Departure Disposition: [facility] DC/Xfer Clinical Impression: Pneumonia Qualifiers: Pneumonia type: due to unspecified organism Laterality: right Lung location: lower lobe of lung Qualified Code(s): J18.1 - Lobar pneumonia, unspecified organism Reactive airway disease with status asthmaticus Qualifiers: Asthma severity: severe Asthma persistence: persistent Qualified Code(s): J45.52 - Severe persistent asthma with status asthmaticus Discharge Date/Time: 05/13/19 00:30
[2019-05-12 22:06] LABS: COCAINE SCREEN URINE NEGATIVE (NEGATIVE); METHAMPHETAMINES SCREEN, URINE NEGATIVE (NEGATIVE)
[2019-05-12 22:07] LABS: AMPHETAMINE SCREEN,URINE NEGATIVE (NEGATIVE); BENZODIAZEPINES SCREEN, URINE NEGATIVE (NEGATIVE); METHADONE SCREEN, URINE NEGATIVE (NEGATIVE); OPIATE SCREEN, URINE NEGATIVE (NEGATIVE); OXYCODONE SCREEN, URINE NEGATIVE (NEGATIVE); PROPOXYPHENE SCREEN, URINE NEGATIVE (NEGATIVE); TRICYCLIC ANTIDEPRESSANT,URINE NEGATIVE (NEGATIVE)
[2019-05-12 22:08] LABS: BASOPHILS # (AUTO) 0.1 10^3/uL (0.0-0.1); BASOPHILS % (AUTO) 0.4 %; EOSINOPHILS # (AUTO) 1.7 10^3/uL (0.0-0.7); EOSINOPHILS % (AUTO) 7.3 %; HGB - HEMOGLOBIN 12.9 g/dL (12.0-16.0); LYMPHOCYTES # (AUTO) 3.5 10^3/uL (1.5-3.5); LYMPHOCYTES % (AUTO) 15.3 %; MEAN CORPUSCULAR HEMOGLOBIN 30.5 pg (27.0-31.0); MEAN CORPUSCULAR HGB CONC 31.7 g/dL (32.0-36.0); MEAN CORPUSCULAR VOLUME 96.2 fL (81.0-99.0); MEAN PLATELET VOLUME 8.9 fL (7.9-10.8); MONOCYTES # (AUTO) 0.8 10^3/uL (0.0-1.0); MONOCYTES % (AUTO) 3.4 %; NEUTROPHILS # (AUTO) 16.7 10^3/uL (1.5-6.6); NEUTROPHILS % (AUTO) 72.7 %; PLT - PLATELET COUNT 440 10^3/uL (130-450); RED BLOOD COUNT 4.23 10^6/uL (4.20-5.40); RED CELL DISTRIBUTION WIDTH 13.1 % (12.0-15.0)
[2019-05-12 22:14] LABS: VBG PCO2 88.5 mmHg (41-51); VBG PH 7.072 (7.31-7.41); VBG PO2 45.3 mmHg (25-47); VBG TOTAL CO2 27.9 mmol/L (24-29)
[2019-05-12 22:22] LABS: ALBUMIN 4.2 g/dL (3.2-5.5); ALBUMIN/GLOBULIN RATIO 1.5 (1.0-2.2); BILIRUBIN,TOTAL 0.6 mg/dL (0.2-1.0); CALCIUM 9.2 mg/dL (8.5-10.3); CREATININE 0.8 mg/dL (0.4-1.0)
[2019-05-12 22:31] LABS: PLATELET ESTIMATE, MANUAL NORMAL (130-450,000) (NORMAL); PLATELET MORPHOLOGY NORMAL APPEARANCE (NORMAL); RBC MORPHOLOGY (MULTIPLE) NORMAL APPEARANCE (NORMAL)
[2019-05-12 22:32] LABS: DIFFERENTIAL COMMENT MANUAL=AUTO DIFF
[2019-05-12] MEDS ORDERED: SODIUM CHLORIDE 0.9% 1,000 ML IV ONE (22:35)
[2019-05-12] MEDS ORDERED: cefTRIAXone 1 GM in SODIUM CHLORIDE 0.9% MINIBAG 100 ML IV STA (22:35)
[2019-05-12] MEDS ORDERED: AZITHROMYCIN INJ 500 MG in SODIUM CHLORIDE 0.9% 250 ML IV STA (22:36)
--- NOTE | 2019-05-12 22:37 | XRAY Report ---
Reason: chest pain Procedure Date: 05/12/2019 Accession Number: [id number] / [id number] Procedure: XR - Chest 1 View X-Ray CPT Code: 92773 Final Report FULL RESULT: EXAM: CHEST RADIOGRAPHY EXAM DATE: 05/12/2019 10:02 PM. CLINICAL HISTORY: Chest pain. COMPARISON: CHEST 2 VIEW 04/23/2019 7:25 PM. TECHNIQUE: 1 view. FINDINGS: LUNGS: The lungs are clear. New round 1 cm opacity overlying the right lower lung zone favored to represent nipple shadow. PLEURA: No significant pleural effusion. No clinically significant pneumothorax. MEDIASTINUM: The cardiomediastinal silhouette is unremarkable. BONES: No suspicious osseous lesions. Partially midcervical spinal fusion hardware. IMPRESSION: 1. No acute cardiopulmonary abnormality. 2. New round 1 cm opacity overlying the right lower lung zone favored to represent nipple shadow. Consider repeat imaging with nipple markers for confirmation. RADIA
[2019-05-12] MEDS ORDERED: ALBUTEROL NEB 2.5 MG/3 ML INH STA (23:05)
--- NOTE | 2019-05-12 23:42 | HISTORY & PHYSICAL EXAMINATION ---
Chief Complaint - Chief Complaint Chief Complaint: dyspnea History of Present Illness - Admitted From Admitted From:: [facility] ED - History Obtained From Records Reviewed: yes History obtained from: boyfriend Exam Limitations: currently sedated - History of Present Illness HPI Comment/Other: Patient seen on 05/12/19 around 11pm Patient is a 58 y/o female who presented to the ED via EMS with acute onset of dyspnea. It happened about 1 hour prior to admission. 4 weeks ago the patient was experiencing dyspnea and presented tot he ED. She was diagnosed with bronchitis, given a zpak and discharged. She presented one week later when her symptoms persisted. It is reported that she was advised that it could take up to three weeks for her symptoms to resolve. Prior to the acute worsening of her symptom she seemed to be functioning at baseline. Her boyfriend who provides this history reports that she did not complain of chest pain or had a fever. She was given 125mg IV of solumedrol, Duoneb, albuterol and racemic epinephrine in the field. Upon arrival to the ED she had significant wheezing bilateral with very decr eased air movement on auscultation. She was very agitated and required ativan and ketamine for sedation so that labs and treatment could be done. As a result she was very sedated and unable to provide history. Her boyfriend reports that she takes a long time to recover from sedation. She was found to have a WBC of 23. A VBG showed a pH of 7.0 and pCO2 of 88. As a she was placed on a bibap and presented for admission. 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 grandmother: heart attack, stroke. Hx of stomach cancer in the family Social History Notes: Live with boyfriend. 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 In records there is reported history of marijana (smoked) and amphetamines in the past. She currently does not smoke but had smoked occasionally in the past. She drank wine in the past. - POLST Patient has POLST: No Meds/Allgy - Home Medications Home Medications: Ambulatory Orders Medication Instructions Recorded Confirmed Enoxaparin [Lovenox] 07/18/18 Hydrocodone/Acetaminophen 1 - 2 each PO Q6H PRN #14 tablet 07/18/18 [Hydrocodon-Acetaminophen 5-325] Metoclopramide [Reglan] 10 mg PO Q6H PRN #20 tablet 07/18/18 oxyCODONE [Roxicodone] 07/18/18 Albuterol Sulf [Ventolin Hfa 1 - 2 puffs INH Q4HR PRN #1 inhaler 04/18/19 Inhaler] Azithromycin [Zithromax] 1 tab PO DAILY #6 tablet 04/18/19 guaiFENesin/CODEINE [Robitussin AC] 5 - 10 ml PO Q6H PRN #120 ml 04/18/19 predniSONE [Deltasone] 60 mg PO DAILY 5 Days #15 tablet 04/18/19 Albuterol 2.5 mg INH Q4H PRN #30 neb 04/23/19 Benzonatate [Tessalon Perle] 100 - 200 mg PO TID PRN #30 capsule 04/23/19 predniSONE [Deltasone] 10 mg PO [id number] #42 tab 04/23/19 - Allergies Allergies/Adverse Reactions: Allergies Allergy/AdvReac Type Severity Reaction Status Date / Time morphine AdvReac Nausea Verified 04/18/19 13:00 Review of Systems - Other Findings Other Findings: ROS is currently limited because the patient is very sedated after administration of ketamine and ativan Prior Level of Functionality: She is independent of activities of daily living. She lives with her boyfriend. 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 negative: Alert Eyes Bilateral: positive: Normal inspection, PERRL, EOMI ENT: positive: ENT inspection nml Neck: positive: Nml inspection, No JVD, Trachea midline Respiratory: positive: Chest non-tender, Wheezes Cardiovascular: positive: Tachycardia Abdomen: positive: Non-tender, No organomegaly, Nml bowel sounds, No distention. negative: Guarding, Rebound Back: positive: Nml inspection Skin: positive: Color nml Extremities: positive: Non-tender Neurologic/Psychiatric: positive: Other (Currently sedated) Conclusion/Plan - Problem List (1) Acute respiratory failure with hypoxia and hypercapnia Conclusion/Plan: DDx: ? respiratory vs cardiac cause ?Suspect pneumonia vs bronchitis Blood cultures drawn Patient given rocephin and azithromycin. Will place patient on levaquin. Patient currently sedated Currently on bipap. Will recheck ABG and adjust settings accordingly Duoneb q4hrs scheduled. Albuterol q4hrs prn. Solumedrol 125mg IV q8hrs Cardiac: ? NSTEMI (2) NSTEMI (non-ST elevated myocardial infarction) Conclusion/Plan: Though initial Trop was 10. Repeat trop 6hrs later was 591 Will complete trending Troponin Repeat EKG mainly shows tachycardia Patient started on a full dose aspirin daily Receiving IV fluids at 125ml/hr 2D echo ordered Last echo in 11/07/15 showed an EF of 60-65% With normal left and right ventricle function There was no valvular abnormality noted UDS and alcohol levels were neg - Lab Results Fish Bones: 05/13/19 03:50 05/13/19 04:00 Core Measures - Anticipated LOS I expect patient to be DC'd or transferred within 96 hours.: Yes - DVT/VTE - Prophylaxis VTE/DVT Device ordered at admit?: Yes VTE/DVT Prophylaxis med ordered at admit?: Yes
[2019-05-12] MEDS ORDERED: SODIUM CHLORIDE 0.9% 1,000 ML IV SCH (23:45)
[2019-05-13] MEDS: IPRATROPIUM/ALBUTEROL 3 ML NEB INH SCH ×4 (00:16→14:10)
[2019-05-13 00:30] LABS: ABG HCO3 23.6 mmol/L (22.0-26.0); ABG OXYGEN SATURATION 99 % (94-98); ABG PCO2 43 mmHg (34-45); ABG PH 7.36 (7.35-7.45); ABG TCO2 24.9 MMOL/L (21.0-29.0); ALLEN TEST POSITIVE
[2019-05-13 00:34] LABS: ABG PO2 152 mmHg (80-100)
[2019-05-13] MEDS: SODIUM CHLORIDE FLUSH 0.9% 10 ML SYRINGE IVP SCH ×3 (01:19→09:31)
[2019-05-13 01:59] LABS: BILIRUBIN,URINE NEGATIVE (NEGATIVE); GLUCOSE, URINE (UA) NEGATIVE (NEGATIVE); KETONES,URINE (UA) NEGATIVE (NEGATIVE); LEUKOCYTE ESTERASE, URINE NEGATIVE (NEGATIVE); NITRITE,URINE NEGATIVE (NEGATIVE); OCCULT BLOOD,URINE NEGATIVE (NEGATIVE); PROTEIN,URINE NEGATIVE (NEGATIVE); UROBILINOGEN,URINE 1 (NORMAL) E.U./dL (NORMAL)
[2019-05-13 02:00] LABS: CLARITY,URINE CLEAR (CLEAR)
[2019-05-13 03:45] LABS: ABG PH 7.39 (7.35-7.45)
[2019-05-13 03:46] LABS: ABG BASE EXCESS -0.7 mmol/L (-2.0-3.0); ABG HCO3 24.2 mmol/L (22.0-26.0); ABG OXYGEN SATURATION 96 % (94-98); ABG PCO2 41 mmHg (34-45); ABG PO2 81 mmHg (80-100); ABG TCO2 25.5 MMOL/L (21.0-29.0); ALLEN TEST POSITIVE
[2019-05-13] MEDS ORDERED: ACETAMINOPHEN 325 MG TABLET PO PRN (03:56)
[2019-05-13 04:00] LABS: BASOPHILS % (AUTO) 0.3 %; EOSINOPHILS # (AUTO) 0.1 10^3/uL (0.0-0.7); EOSINOPHILS % (AUTO) 0.5 %; HGB - HEMOGLOBIN 11.3 g/dL (12.0-16.0); LYMPHOCYTES # (AUTO) 0.4 10^3/uL (1.5-3.5); LYMPHOCYTES % (AUTO) 3.8 %; MEAN CORPUSCULAR HEMOGLOBIN 29.5 pg (27.0-31.0); MEAN CORPUSCULAR HGB CONC 31.9 g/dL (32.0-36.0); MEAN CORPUSCULAR VOLUME 92.4 fL (81.0-99.0); MEAN PLATELET VOLUME 8.6 fL (7.9-10.8); MONOCYTES # (AUTO) 0.2 10^3/uL (0.0-1.0); MONOCYTES % (AUTO) 1.4 %; NEUTROPHILS # (AUTO) 10.3 10^3/uL (1.5-6.6); NEUTROPHILS % (AUTO) 93.2 %; PLT - PLATELET COUNT 263 10^3/uL (130-450); RED BLOOD COUNT 3.83 10^6/uL (4.20-5.40); RED CELL DISTRIBUTION WIDTH 13.2 % (12.0-15.0); WHITE BLOOD COUNT 11.1 x10^3/uL (4.8-10.8)
[2019-05-13 04:08] LABS: CALCIUM 8.5 mg/dL (8.5-10.3); CREATININE 0.6 mg/dL (0.4-1.0)
[2019-05-13] MEDS ORDERED: SODIUM CHLORIDE 0.9% 1,000 ML IV SCH ×2 (05:32→09:29)
[2019-05-13] MEDS: methylPREDNISolone SUCCINATE 125 MG/2 ML VIAL IVP SCH ×2 (06:04→13:41)
[2019-05-13] MEDS ORDERED: PANTOPRAZOLE 40 MG VIAL IVP SCH (07:00)
[2019-05-13 07:56] LABS: HGB - HEMOGLOBIN 11.7 g/dL (12.0-16.0); MEAN CORPUSCULAR HGB CONC 33.1 g/dL (32.0-36.0); MEAN CORPUSCULAR VOLUME 93.4 fL (81.0-99.0); MEAN PLATELET VOLUME 8.7 fL (7.9-10.8); RED BLOOD COUNT 3.78 10^6/uL (4.20-5.40); RED CELL DISTRIBUTION WIDTH 13.2 % (12.0-15.0); WHITE BLOOD COUNT 8.4 x10^3/uL (4.8-10.8)
[2019-05-13] MEDS ORDERED: HEPARIN 25000UNITS/500ML (D5W) 25,000 UNIT/500 ML BAG IV SCH (08:00)
[2019-05-13] MEDS ORDERED: HEPARIN BOLUS PRN PER PROTOCOL IVP (08:00)
[2019-05-13] MEDS ORDERED: HEPARIN DRIP CARDIAC @ 12 UNITS/KG/HR IV SCH (08:00)
[2019-05-13] MEDS ORDERED: HEPARIN CARDIAC INITIAL BOLUS IVP SCH (08:00)
[2019-05-13 08:15] LABS: MAGNESIUM 2.6 mg/dL (1.7-2.8); PHOSPHORUS 3.6 mg/dL (2.5-4.6)
[2019-05-13] MEDS: SODIUM CHLORIDE FLUSH 0.9% 10 ML SYRINGE IVP PRN ×2 (08:25→15:10)
[2019-05-13] MEDS ORDERED: levoFLOXacin 750 MG/150 ML 750 MG/150 ML BAG IV SCH (09:00)
[2019-05-13] MEDS ORDERED: ASPIRIN 325 MG TABLET PO SCH (09:00)
[2019-05-13] MEDS ORDERED: ENOXAPARIN 40 MG/0.4 ML SYRINGE SUBQ SCH (09:00)
[2019-05-13] MEDS ORDERED: NITROGLYCERIN SL 0.4 MG TABLET SL PRN (11:47)
[2019-05-13] MEDS ORDERED: ATORVASTATIN 40 MG TABLET PO ONE (12:00)
[2019-05-13] MEDS ORDERED: carvediloL 3.125 MG TABLET PO SCH (12:00)
[2019-05-13 12:20] LABS: CHOL/HDL RATIO 1.9 (<4.4); CHOLESTEROL 211 mg/dL; HDL CHOLESTEROL 109 mg/dL
--- NOTE | 2019-05-13 13:17 | Discharge Plan ---
Discharge Plan Problem Reviewed?: Yes Disposition: 02 Transfer Acute Care Hosp Diet: Cardiac Instruction Topics: Hydrocortisone injection, Pantoprazole injection, BiPap About, BiPap Using No Smoking: If you smoke, Please STOP! Call for help.
--- NOTE | 2019-05-13 13:18 | DISCHARGE SUMMARY ---
Discharge Summary Admit Date: 05/12/19 Discharge Date: 05/13/19 Discharging Provider: Dr Yamilka Beck Primary Care Provider: Citlali Vincent PIPELAYER Code Status: Attempt Resuscitation Condition at Discharge: Stable Discharge Disposition: 02 Transfer Acute Care Hosp Dis[facility] - DIAGNOSES Admission Diagnoses: (1) Acute respiratory failure with hypoxia and hypercapnia (2) NSTEMI (non-ST elevated myocardial infarction) Discharge Diagnoses with Status of Each Condition: See below - HPI History of Present Illness: From the admossion H&P of Dr Alf Rowley: Patient is a 58 y/o female who presented to the ED via EMS with acute onset of dyspnea. It happened about 1 hour prior to admission. 4 weeks ago the patient was experiencing dyspnea and presented tot he ED. She was diagnosed with bronchitis, given a zpak and discharged. She presented one week later when her symptoms persisted. It is reported that she was advised that it could take up to three weeks for her symptoms to resolve. Prior to the acute worsening of her symptom she seemed to be functioning at baseline. Her boyfriend who provides this history reports that she did not complain of chest pain or had a fever. She was given 125mg IV of solumedrol, Duoneb, albuterol and racemic epinephrine in the field. Upon arrival to the ED she had significant wheezing bilateral with very decreased air movement on auscultation. She was very agitated and required ativan and ketamine for sedation so that labs and treatment could be done. As a result she was very sedated and unable to provide history. Her boyfriend reports that she takes a long time to recover from sedation. She was found to have a WBC of 23. A VBG showed a pH of 7.0 and pCO2 of 88. As a she was placed on a bibap and presented for admission. The first hs-troponin was 10, by 4 hours later it was 592. - HOSPITAL COURSE Hospital Course: (1) Acute respiratory failure with hypoxia and hypercapnia She required escalating settings of supplemental O2, and eventually was admitted on BIPAP to the ICU. After several hours of BIPAP, and sedation wore off, she requested a break, and was saturating adequately on O2 per nasal cannula. Her CXR did not reveal an infiltrate or pulmonary edema, however. (2) NSTEMI (non-ST elevated myocardial infarction) Once her sedative wore off, she told the Hospitalist that she had been having pleuritic chest pain with the cough and also new symptoms of "an elephant sitting on her chest " over the past 1 week. Her high sensitivity-troponins lola (10>> 591>> 630) and a repeat EKG had new extensive (infero-lateral and amber- septal) T wave abnormalities. An Echo was done that showed a large akinetic and thinned zone at the septum, anterior wall, distal lateral wall and the apex which was almost aneurysmal, LVEF was 25%. She was given Coreg, sl NTG prn, aspirin, iv Heparin and Lipitir 80 mg. Hospitalist contacted her [place] insurance who approved and arranged her transfer to the ICU at [facility], and for a coronary angiogram. She was transferred by [facility] ambulance in stabilized condition. 3) Acute asthmatic bronchitis She was empirically started on nebs, iv steroids, Zithromax and iv Ceftriaxone. (4) Hyperlipidemia She reported poor cholesterol control; her total cholesterol measured here was 211, no LDL could be measured. (5) Hx of carotid thrombsis Near discharge, she reported to the Hospitalist, that 9 years ago she had a clot in the R carotid artery and was on 6 mos of Coumadin. There were never tests do ne to check for hypercoagulability, she said. (6) Engages in non-nicotine containing vaping Also at discharge, she reported that she had started vaping cannabis 1 week ago, which contained pineapple and possible other unknown additives. - ALLERGIES Allergies/Adverse Reactions: Allergies Allergy/AdvReac Type Severity Reaction Status Date / Time morphine AdvReac Nausea Verified 04/18/19 13:00 - MEDICATIONS Home Medications: Ambulatory Orders Medication Instructions Recorded Confirmed No Known Home Medications 05/13/19 05/13/19 - PHYSICAL EXAM AT DISCHARGE General Appearance: positive: No acute distress, Alert Eyes Bilateral: positive: Normal inspection ENT: positive: No signs of dehydration Neck: positive: Nml inspection, No JVD Respiratory: positive: No respiratory distress Cardiovascular: positive: Regular rate & rhythm, No murmur Abdomen: positive: No distention Extremities: positive: No pedal edema Neurologic/Psychiatric: positive: Oriented x3, Other (non-focal) - LABS Result Diagrams: 05/13/19 07:50 05/13/19 04:00 - DIAGNOSTIC IMAGING Diagnostic Imaging Results: Final report reviewed - FOLLOW UP Follow Up: This will be determined after her stay at [facility] - TIME SPENT Time Spent in Discharge (Minutes): 60
[2019-05-13 15:06] VITALS: BP 110/72
== END 2019-05-13 15:35 | disposition short-term general hospital (02) | DRG 189 ==
LOC: EDUNIT# → ED 21:30 → ICU 23:28
PROVIDERS: ADMIT Internal Medicine; ATTEND Internal Medicine
DX: J96.01 Acute respiratory failure with hypoxia (principal); I21.4 Non-ST elevation (NSTEMI) myocardial infarction; J45.52 Severe persistent asthma with status asthmaticus; J96.02 Acute respiratory failure with hypercapnia; J20.9 Acute bronchitis, unspecified; E86.0 Dehydration; E78.5 Hyperlipidemia, unspecified; Z86.718 Personal history of other venous thrombosis and embolism; Z72.89 Other problems related to lifestyle; Z86.79 Personal history of other diseases of the circulatory system; Z79.899 Other long term (current) drug therapy
CPT/HCPCS: 36415; 36600; 71045; 80048; 80053; 80061; 80306; 80320; 81003; 82803; 83605; 83690; 83735; 83880; 84100; 84484; 85025; 85027; 85520; 87040; 87150; 93005; 93306; 94640; 94660; 96365; 96372; 99281; 99285; A9270; J2060; 81001; 83721; 87086

== ENCOUNTER 2020-01-10 08:35 | Emergency (ER) | payer OTHER ==
[2020-01-10] MEDS ORDERED: IPRATROPIUM/ALBUTEROL 3 ML NEB INH STA (08:53)
[2020-01-10] MEDS ORDERED: DEXAMETHASONE 10 MG/ML VIAL IVP STA (08:53)
--- NOTE | 2020-01-10 08:57 | ED Physician Documentation ---
History of Present Illness - Stated complaint Stated Complaint: CHEST PX/SOA - Chief complaint Chief Complaint: Cardiac - History obtained from History obtained from: Patient, Family - History of Present Illness Timing: How many days ago (2) Pain level max: 5 Pain level now: 4 - Additonal information Additional information: 59-year-old female presents to the emergency department complaint of difficulty breathing for the past 2 to 3 days. She states she gets sharp pain in her chest intermittently. Nonradiating. Nothing makes it better or worse. She did have an episode of takotsubo cardiomyopathy approximately 1 year ago, she had a normal coronary angiogram at that time. No calcifications. No blockages. She has been wheezing for the past several days. Used an inhaler with mild relief. No fevers. Mild dry cough. No body aches. No nausea. No vomiting. Review of Systems Ten Systems: 10 systems reviewed and negative Constitutional: denies: Fever, Chills Throat: denies: Sore throat Cardiac: denies: Palpitations Respiratory: reports: Dyspnea, Cough, Wheezing GI: denies: Abdominal Pain, Nausea, Vomiting, Diarrhea : denies: Dysuria Skin: denies: Rash Musculoskeletal: denies: Neck pain, Back pain Neurologic: denies: Headache PD PAST MEDICAL HISTORY - Past Medical History Cardiovascular: Other (Hx of endocarditis (pulmonary valves), carotid stenosis) Respiratory: None, Other Neuro: None Endocrine/Autoimmune: None GI: Other : None HEENT: None Psych: Depression Musculoskeletal: Osteoarthritis Derm: None - Past Surgical History Past Surgical History: Yes General: Appendectomy, Other Ortho: Carpal Tunnel surgery, Spine surgery, 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 Cardiovascular: Vascular surgery - Present Medications Home Medications: Ambulatory Orders Medication Instructions Recorded Confirmed Albuterol Sulf [Ventolin Hfa 1 - 2 puffs INH Q4HR PRN #1 inhaler 01/10/20 Inhaler] predniSONE [Deltasone] 10 mg PO [id number] #42 tab 01/10/20 - Allergies Allergies/Adverse Reactions: Allergies Allergy/AdvReac Type Severity Reaction Status Date / Time morphine AdvReac Nausea Verified 01/10/20 08:48 - Social History Does the pt smoke?: No Smoking Status: Never smoker Does the pt drink ETOH?: Yes Does the pt have substance abuse?: Yes - Immunizations Immunizations are current?: Yes - POLST Patient has POLST: No PD ED PE NORMAL - Vitals Vital signs reviewed: Yes - General General: Alert and oriented X 3, No acute distress, Well developed/nourished - HEENT HEENT: PERRL, Moist mucous membranes - Neck Neck: Supple, no meningeal sign - Cardiac Cardiac: RRR - Respiratory Respiratory: Other (Audible wheezing from the bedside, mild respiratory distress) - Abdomen Abdomen: Soft, Non tender, Non distended - Back Back: No spinal TTP - Derm Derm: Warm and dry - Extremities Extremities: No edema, No calf tenderness / cord - Neuro Neuro: Alert and oriented X 3 - Psych Psych: Normal mood, Normal affect Results - Vitals Vitals: Vital Signs - 24 hr 01/10/20 01/10/20 01/10/20 08:48 09:04 09:30 Temperature 36.6 C Heart Rate 77 64 68 Respiratory 14 11 L 14 Rate Blood Pressure 119/82 H 129/70 135/75 H O2 Saturation 99 97 98 01/10/20 01/10/20 10:00 10:36 Temperature 36.7 C Heart Rate 63 70 Respiratory 15 15 Rate Blood Pressure 141/85 H 141/85 H O2 Saturation 94 97 Oxygen O2 Source Room air - EKG (time done) 0845 Rate: Rate (enter#) (72) Rhythm: NSR [place]: Normal Intervals: Normal VT QRS: Normal Ischemia: Normal ST segments - Labs Labs: Laboratory Tests 01/10/20 01/10/20 01/10/20 08:55 08:55 08:55 WBC 7.2 RBC 4.07 L Hgb 12.5 Hct 38.1 MCV 93.6 MCH 30.7 MCHC 32.8 RDW 12.7 Plt Count 257 MPV 8.9 Neut # (Auto) 4.9 Lymph # (Auto) 1.4 L [place] # (Auto) 0.4 Eos # (Auto) 0.4 Baso # (Auto) 0.0 Absolute Nucleated RBC 0.00 Nucleated RBC % 0.0 Sodium 138 Potassium 4.0 Chloride 105 Carbon Dioxide 26 Anion Gap 7.0 BUN 23 H Creatinine 0.6 Estimated GFR (MDRD) 102 Glucose 106 H Calcium 9.1 Total Bilirubin 0.7 AST 26 ALT 20 Alkaline Phosphatase 69 Troponin I High Sens 3.5 Total Protein 6.5 L Albumin 4.4 Globulin 2.1 Albumin/Globulin Ratio 2.1 Lipase 43 - Rads (name of study) cxr Radiology: Prelim report reviewed, EMP read contemporaneously, See rad report (No acute disease) PD MEDICAL DECISION MAKING - ED course Complexity details: reviewed results, re-evaluated patient, considered differential (No ST elevation NC, no aortic dissection, no PE, no tension pneumothorax, no aortic aneurysm), d/w patient ED course: 59-year-old female presents to the emergency department with atypical chest pain. Symptoms resolved with nebulizer treatment and steroids. Appears to be more related to underlying lung disease. We will place her on a steroid taper for home. She is well-appearing, nontoxic. Afebrile. No hypoxia. No evidence of infection. No indication for antibiotics. Patient counseled regarding signs and symptoms for which I believe and urgent re-evaluation would be necessary. Patient with good understanding of and agreement to plan and is comfortable going home at this time This document was made in part using voice recognition software. While efforts are made to proofread this document, sound alike and grammatical errors may occur. Departure - Departure Disposition: 01 Home, Self Care Clinical Impression: Atypical chest pain, Wheezing Condition: Good Instructions: ED Chest Pain Atypical Unkn Cause Follow-Up: DOMENICA KWOK ARNP [Primary Care Provider] - Within 1 week Prescriptions: Albuterol Sulf [Ventolin Hfa Inhaler] 1 - 2 puffs INH Q4HR PRN #1 inhaler PRN Reason: Shortness Of Air/Wheezing predniSONE [Deltasone] 10 mg PO [id number] #42 tab Comments: Use the medications as prescribed. Return if you worsen. Follow-up with your doctor for further care. Discharge Date/Time: 01/10/20 10:40
[2020-01-10 09:16] LABS: BASOPHILS % (AUTO) 0.6 %; EOSINOPHILS # (AUTO) 0.4 10^3/uL (0.0-0.7); EOSINOPHILS % (AUTO) 5.6 %; HGB - HEMOGLOBIN 12.5 g/dL (12.0-16.0); LYMPHOCYTES # (AUTO) 1.4 10^3/uL (1.5-3.5); LYMPHOCYTES % (AUTO) 19.2 %; MEAN CORPUSCULAR HEMOGLOBIN 30.7 pg (27.0-31.0); MEAN CORPUSCULAR HGB CONC 32.8 g/dL (32.0-36.0); MEAN CORPUSCULAR VOLUME 93.6 fL (81.0-99.0); MEAN PLATELET VOLUME 8.9 fL (7.9-10.8); MONOCYTES # (AUTO) 0.4 10^3/uL (0.0-1.0); NEUTROPHILS # (AUTO) 4.9 10^3/uL (1.5-6.6); NEUTROPHILS % (AUTO) 68.3 %; PLT - PLATELET COUNT 257 10^3/uL (130-450); RED BLOOD COUNT 4.07 10^6/uL (4.20-5.40); RED CELL DISTRIBUTION WIDTH 12.7 % (12.0-15.0); WHITE BLOOD COUNT 7.2 x10^3/uL (4.8-10.8)
--- NOTE | 2020-01-10 09:21 | XRAY Report ---
PROCEDURE: Chest 1 View X-Ray INDICATIONS: Chest Pain TECHNIQUE: One view of the chest was acquired. COMPARISON: 05/12/2019 FINDINGS: Surgical changes and devices: None. Lungs and pleura: No pleural effusions or pneumothorax. Lungs are clear. Mediastinum: Mediastinal contours appear normal. Heart size is normal. Bones and chest wall: No suspicious bony lesions. Overlying soft tissues appear unremarkable. IMPRESSION: Chest without acute cardiopulmonary abnormalities. No focal airspace disease. Reviewed by: Jensen Higginbotham MD on 01/10/2020 9:20 AM PDT Approved by: Jensen Higginbotham MD on 01/10/2020 9:20 AM PDT Station ID: [id number]
[2020-01-10 09:34] LABS: ALBUMIN 4.4 g/dL (3.2-5.5); ALBUMIN/GLOBULIN RATIO 2.1 (1.0-2.2); BILIRUBIN,TOTAL 0.7 mg/dL (0.2-1.0); CALCIUM 9.1 mg/dL (8.5-10.3); CREATININE 0.6 mg/dL (0.4-1.0); TOTAL PROTEIN 6.5 g/dL (6.7-8.2)
[2020-01-10 10:06] VITALS: BP 141/85
== END 2020-01-10 10:40 | disposition home or self-care (01) ==
LOC: ED 08:35
DX: R07.89 Other chest pain (principal); R06.2 Wheezing; Z20.828 Contact with and (suspected) exposure to other viral communicable diseases
CPT/HCPCS: 36415; 71045; 80053; 81599; 83690; 84484; 85025; 93005; 94640; 96374; 99284

== ENCOUNTER 2020-08-08 12:17 | Outpatient (CLI) | payer OTHER | END 2020-08-08 12:18 | disposition home or self-care (01) | LOC: COV 12:17 | PROVIDERS: ATTEND Family Medicine | DX: R05 Cough (principal); M79.10 Myalgia, unspecified site; R53.83 Other fatigue; R68.83 Chills (without fever); R07.0 Pain in throat; R19.7 Diarrhea, unspecified; R43.9 Unspecified disturbances of smell and taste; Z20.822 Contact with and (suspected) exposure to COVID-19 ==

== ENCOUNTER 2022-10-01 14:04 | Outpatient (CLI) | payer MEDICAID ==
[2022-10-01 19:55] LABS: BASOPHILS % (AUTO) 0.5 %; EOSINOPHILS # (AUTO) 0.1 10^3/uL (0.0-0.7); EOSINOPHILS % (AUTO) 2.1 %; HCT - HEMATOCRIT 42.1 % (37.0-47.0); HGB - HEMOGLOBIN 13.2 g/dL (12.0-16.0); LYMPHOCYTES # (AUTO) 1.2 10^3/uL (1.5-3.5); LYMPHOCYTES % (AUTO) 20.6 %; MEAN CORPUSCULAR HEMOGLOBIN 28.9 pg (27.0-31.0); MEAN CORPUSCULAR HGB CONC 31.4 g/dL (32.0-36.0); MEAN CORPUSCULAR VOLUME 92.3 fL (81.0-99.0); MEAN PLATELET VOLUME 9.2 fL (7.9-10.8); MONOCYTES # (AUTO) 0.5 10^3/uL (0.0-1.0); MONOCYTES % (AUTO) 8.3 %; NEUTROPHILS # (AUTO) 3.8 10^3/uL (1.5-6.6); NEUTROPHILS % (AUTO) 68.3 %; PLT - PLATELET COUNT 306 10^3/uL (130-450); RED BLOOD COUNT 4.56 10^6/uL (4.20-5.40); RED CELL DISTRIBUTION WIDTH 13.2 % (12.0-15.0); WHITE BLOOD COUNT 5.6 x10^3/uL (4.8-10.8)
[2022-10-01 20:18] LABS: RHEUMATOID FACTOR NEGATIVE (Negative)
[2022-10-01 20:40] LABS: ALBUMIN 4.2 g/dL (3.2-5.5); ALBUMIN/GLOBULIN RATIO 1.3 (1.0-2.2); ALKALINE PHOSPHATASE 82 IU/L (42-121); ALT ALANINE AMINOTRANSFERASE 16 IU/L (10-60); AST ASPARTATE AMINOTRANSFERASE 22 IU/L (10-42); BILIRUBIN,TOTAL 0.4 mg/dL (0.2-1.0); BUN - BLOOD UREA NITROGEN 20 mg/dL (6-20); CALCIUM 9.4 mg/dL (8.5-10.3); CARBON DIOXIDE - CO2 27 mmol/L (21-32); CHLORIDE 101 mmol/L (101-111); CHOL/HDL RATIO 2.2 (<4.4); CHOLESTEROL 248 mg/dL; CREATININE 0.6 mg/dL (0.4-1.0); GFR - MDRD 101 (>89); GLUCOSE 95 mg/dL (70-100); HDL CHOLESTEROL 114 mg/dL; LDL CHOLESTEROL,CALCULATED 120 mg/dL; LDL/HDL RATIO 1.1 (<4.4); POTASSIUM 4.1 mmol/L (3.5-5.0); SODIUM 137 mmol/L (135-145); TOTAL PROTEIN 7.4 g/dL (6.7-8.2); TRIGLYCERIDES 70 mg/dL; VLDL CHOLESTEROL 14 mg/dL
[2022-10-01 20:51] LABS: THYROID STIMULATING HORMONE 1.61 uIU/mL (0.34-5.60)
[2022-10-01 21:18] LABS: CRP - C-REACTIVE PROTEIN < 1.0 mg/dL (0-1.0)
[2022-10-04 00:08] LABS: HCV AB Non Reactive (Non Reactive)
[2022-10-04 18:07] LABS: ANTINUCLEAR ANTIBODIES IFA Negative (.)
[2022-10-06 20:07] LABS: CYCLIC CITRULLINATED PEP IGG/A 4 units (0-19)
== END 2022-10-01 14:05 | disposition home or self-care (01) ==
LOC: LAB.S 14:04
PROVIDERS: ATTEND Nurse Practitioner Acute Care
DX: M25.40 Effusion, unspecified joint (principal); Z13.228 Encounter for screening for other metabolic disorders; Z13.220 Encounter for screening for lipoid disorders; Z13.29 Encounter for screening for other suspected endocrine disorder; Z13.0 Encounter for screening for diseases of the blood and blood-forming organs and certain disorders involving the immune mechanism; Z11.59 Encounter for screening for other viral diseases
CPT/HCPCS: 36415; 80053; 80061; 83721; 84443; 85025; 85651; 86038; 86140; 86200; 86430; 86803

== ENCOUNTER 2022-10-01 14:07 | Outpatient (CLI) | payer MEDICAID ==
--- NOTE | 2022-10-10 15:28 | Mammography Report ---
BILATERAL DIGITAL SCREENING MAMMOGRAM 3D/2D: 10/01/2022 CLINICAL: Routine screening. Family history of breast cancer. Comparison is made to exams dated: 04/11/2020 mammogram, 11/25/2019 mammogram, and 10/22/2017 mammogram - [facility]. Both breasts are heterogeneously dense, which may obscure small masses (category c / 51-75% glandular tissue). No significant masses, calcifications, or other findings are seen in either breast. There has been no significant interval change. IMPRESSION: NEGATIVE There is no mammographic evidence of malignancy. A 1 year screening mammogram is recommended. Conside r also MRI screening due to elevated lifetime risk. Based on Tyrer-Cuzick model (a risk assessment model), the patient's lifetime risk is 21.2% and her 1 0 year risk is 9.5%. If a patient has an elevated risk, a more comprehensive evaluation should be con sidered and/or a referral to a genetic counselor. The [place] [employer], [employer], and NCCN Guidelines advise the consideration of Breast MRI as an adjunct to screening mammog magdalene in patients whose "Lifetime risk to develop breast cancer" is 20% or higher. This exam was interpreted at Station ID: [id number]. NOTE: For mammograms, a report in lay terms will be sent to the patient. Approximately 15% of breast malignancies will not be visualized mammographically. In the management of a palpable breast mass, a negative mammogram must not discourage biopsy of a clinically suspicious lesion. Electronically Signed By: Brody Morgan M.D. lc/:10/10/2022 10:33:16 letter sent: No_Letter ACR BI-RADS Category 1: Negative 3341F PARENCHYMAL PATTERN: (D) - The breast(s) demonstrate(s) heterogeneously dense fibroglandular pariwonay ma. BI-RADS CATEGORY: (1) - 1 Mammogram [id number] 1 year screening LATERALITY: (B)
== END 2022-10-01 14:08 | disposition home or self-care (01) ==
LOC: DI.S 14:07
PROVIDERS: ATTEND Nurse Practitioner Acute Care
DX: Z12.31 Encounter for screening mammogram for malignant neoplasm of breast (principal)

== ENCOUNTER 2022-10-21 14:35 | Outpatient (CLI) | payer MEDICAID ==
--- NOTE | 2022-10-21 16:59 | DEXA Report ---
PROCEDURE: Dexa Spine and/or Hip INDICATIONS: POST MENOPAUSAL, HIP MASS, LEFT ARE SKIN NODULE TECHNIQUE: Dual energy x-ray absorptiometry (DXA) was performed on a [employer] System. Regions measur ed are the AP Spine, femoral neck, and if needed forearm. COMPARISON: None. FINDINGS: Lumbar Spine: L4 excluded due to hardware. Bone Mineral Density 0.707 g/cm/cm,T score -3.9, osteoporosis Left Femoral Neck: Bone Mineral Density 0.677 g/cm/cm, T score -2.6, osteoporosis. Left Hip: Bone Mineral Density 0.696 g/cm/cm,T score -2.5, osteoporosis. (T score greater or equal to -1.0: NORMAL) (T score from -1.1 to -2.4: OSTEOPENIA) (T score less than or equal to -2.5 to: OSTEOPOROSIS) Impression: Osteoporosis. Patients with diagnosis of osteoporosis or osteopenia should have regular bone mineral density assess ment. For those eligible for Medicare, routine testing is allowed once every 2 years. Testing frequ ency can be increased for patients who have rapidly progressing disease or for those who are receivin g medical therapy to restore bone mass. Reviewed by: Kosta Wilks on 10/21/2022 4:58 PM PDT Approved by: Kosta Wilks on 10/21/2022 4:58 PM PDT Station ID: [id number]
--- NOTE | 2022-10-21 17:36 | Ultrasound Report ---
PROCEDURE: Ext Limited Non Vascular INDICATIONS: POST MENOPAUSAL, HIP MASS, LEFT ARE SKIN NODULE TECHNIQUE: Real-time scanning was performed of the left forearm, with image documentation. COMPARISON: None. FINDINGS: Focused ultrasound examination of mid left forearm anterior aspect shows ill-defined hypoechoic area in subcutaneous soft tissue measures 5.6 x 6.7 mm in size. No internal vascularity. IMPRESSION: Finding may represent foreign body granuloma in mid forearm soft tissue as above. Clinic al correlation and follow-up is recommended. Reviewed by: Braden King MD on 10/21/2022 5:34 PM PDT Approved by: Braden King MD on 10/21/2022 5:34 PM PDT Station ID: [id number]
--- NOTE | 2022-10-21 17:37 | Ultrasound Report ---
PROCEDURE: Abdomen Limited INDICATIONS: POST MENOPAUSAL, HIP MASS, LEFT ARE SKIN NODULE TECHNIQUE: Real-time focused scanning was performed of the abdomen, with image documentation. COMPARISONS: None. FINDINGS: Focused ultrasound examination of left flank at the level of iliac crest shows a 1.7 x 1 x 2.1 cm sunil id appearing structure within subcutaneous soft tissue and is isoechoic to adjacent subcutaneous fat. No internal vascularity is seen. IMPRESSION: Finding likely represent small lipoma in left flank soft tissue as above. Clinical and sonographic fo llow-up is recommended. Reviewed by: Braden King MD on 10/21/2022 5:35 PM PDT Approved by: Braden King MD on 10/21/2022 5:35 PM PDT Station ID: [id number]
== END 2022-10-21 14:36 | disposition home or self-care (01) ==
LOC: DI 14:35
PROVIDERS: ATTEND Nurse Practitioner Acute Care
DX: R22.2 Localized swelling, mass and lump, trunk (principal); R22.32 Localized swelling, mass and lump, left upper limb; M81.0 Age-related osteoporosis without current pathological fracture

== ENCOUNTER 2022-11-06 11:51 | Day surgery (SDC) | payer MEDICAID ==
[~2022-11-06 11:51] MED LIST: BUPIVACAINE 0.25% PF 30 ML VIAL ONE; LIDOCAINE MPF 2%-EPI 1:200000 20 ML VIAL ONE
[2022-11-06] MEDS ORDERED: LACTATED RINGERS 1,000 ML IV ONE (11:54)
--- NOTE | 2022-11-06 11:58 | ANESTHESIA ---
Pre-Anesthesia VS, & Labs - Diagnosis L lateral FA nodule - Procedure excision L lateral forearm nodule Height: 5 ft 3.5 in - NPO >8 hours - Is Patient ?: No - Lab Results Lab results reviewed: Yes Home Medications and Allergies Home Medications: Ambulatory Orders Aspirin [Vazalore] 81 mg PO DAILY 10/27/22 Aspirin [Vazalore] 81 mg PO DAILY 10/27/22 Allergies/Adverse Reactions: Allergies Allergy/AdvReac Type Severity Reaction Status Date / Time morphine AdvReac Nausea Verified 01/10/20 08:48 Anes History & Medical History - Anesthetic History Anesthesia Complications: reports: No previous complications Family history of Anesthesia Complications: Denies - Medical History Cardiovascular: reports: Other Pulmonary: reports: None, Other Gastrointestinal: reports: Other Urinary: reports: None Neuro: reports: None Musculoskeletal: reports: Osteoarthritis Endocrine/Autoimmune: reports: None Blood Disorders: reports: None Skin: reports: None Smoking Status: Never smoker - Surgical History General: reports: Appendectomy, Other Cardiothoracic: reports: Vascular surgery Gynecologic: reports: Other Orthopedic: reports: Carpal Tunnel surgery, Spine surgery, Other Exam General: Alert, Oriented x3, Cooperative Dental: WNL Mouth Openin Fingerbreadth Neck Mobility: Normal Mallampati classification: II Thyromental Distance: 4-6 cm Respiratory: Lungs clear, Normal breath sounds, No respiratory distress Cardiovascular: Regular rate Neurological: Normal speech Mental/Cognitive Status: Alert/Oriented X3, Normal for patient Cognitive Status: Within normal limits Plan Anesthesia Type: MAC Consent for Procedure(s) Verified and Reviewed: Yes Code Status: Attempt Resuscitation ASA classification: 2-Mild systemic disease Is this case an emergency?: No
[2022-11-06] MEDS ORDERED: fentaNYL 100 MCG/2 ML VIAL ONE (12:04)
[2022-11-06] MEDS ORDERED: MIDAZOLAM 2 MG/2 ML VIAL ONE (12:04)
[2022-11-06] MEDS ORDERED: PROPOFOL 200 MG/20 ML VIAL IVP ONE (12:04)
[2022-11-06] MEDS ORDERED: LIDOCAINE-PF 2% 10 ML AMP SUBQ ONE (12:59)
--- NOTE | 2022-11-06 13:08 | HISTORY & PHYSICAL EXAMINATION ---
Chief Complaint - Chief Complaint Chief Complaint: left arm and left flank painful lump History of Present Illness - History Obtained From Records Reviewed: yes History obtained from: pt Exam Limitations: none - History of Present Illness HPI Comment/Other: painful and enlarging lump left forearm and left flank History - Past Medical History Cardiovascular: reports: Other Respiratory: reports: None, Other Neuro: reports: None Endocrine/Autoimmune: reports: None GI: reports: Other : reports: None HEENT: reports: None Psych: reports: Depression Musculoskeletal: reports: Osteoarthritis Derm: reports: None MRSA Hx?: No - Past Surgical History General: reports: Appendectomy, Other Ortho: reports: Carpal Tunnel surgery, Spine surgery, 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 grandmother: heart attack, stroke. Hx of stomach cancer in the family Social History Notes: Live with boyfriend. 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 In records there is reported history of marijana (smoked) and amphetamines in the past. She currently does not smoke but had smoked occasionally in the past. She drank wine in the past. - POLST Patient has POLST: No Meds/Allgy - Home Medications Home Medications: Ambulatory Orders Medication Instructions Recorded Confirmed Aspirin [Vazalore] 81 mg PO DAILY 10/27/22 11/06/22 - Allergies Allergies/Adverse Reactions: Allergies Allergy/AdvReac Type Severity Reaction Status Date / Time morphine AdvReac Nausea Verified 01/10/20 08:48 Review of Systems - Other Findings Other Findings: 10 pt ros as above otherwise unremarkable Exam - Vital Signs Reviewed Vital Signs: Yes Vital Signs: Vital Signs x48h Temp Pulse Resp BP Pulse Ox 11/06/22 11:59 36 C L 62 18 135/79 H 99 - Physical Exam General Appearance: positive: No acute distress, Alert Eyes Bilateral: positive: PERRL, EOMI ENT: positive: No signs of dehydration Neck: positive: No JVD, Trachea midline Respiratory: positive: Breath sounds nml Cardiovascular: positive: Regular rate & rhythm Abdomen: positive: No distention Skin: positive: Other (left forearm nodule and left flank 4 cm lipoma) Neurologic/Psychiatric: positive: Oriented x3 Conclusion/Plan - Problem List (1) Subcutaneous nodule of left forearm Conclusion/Plan: plan excision forearm nodule and left flank lipoma. parq held and consent obtained - Lab Results Lab results reviewed: Yes
[2022-11-06] MEDS ORDERED: DEXAMETHASONE 4 MG/ML VIAL ONE (13:17)
[2022-11-06] MEDS ORDERED: ONDANSETRON 4 MG/2 ML VIAL ONE (13:17)
[2022-11-06] MEDS ORDERED: GLYCOPYRROLATE 1 MG/5 ML VIAL ONE (13:33)
[2022-11-06] MEDS ORDERED: BUPIVACAINE 0.25% PF 30 ML VIAL SUBQ ONE ×2 (13:38→14:12)
[2022-11-06] MEDS ORDERED: PHENYLEPHRINE 10 MG/ML VIAL ONE (13:49)
[2022-11-06] MEDS ORDERED: ePHEDrine 50 MG/ML VIAL IVP PRN (13:51)
[2022-11-06] MEDS ORDERED: NALOXONE 0.4 MG/ML VIAL IVP PRN (13:51)
[2022-11-06] MEDS ORDERED: ONDANSETRON 4 MG/2 ML VIAL IVP PRN (13:51)
[2022-11-06] MEDS ORDERED: METOCLOPRAMIDE 10 MG/2 ML VIAL IVP PRN (13:51)
[2022-11-06] MEDS ORDERED: fentaNYL 100 MCG/2 ML VIAL IVP PRN (13:51)
[2022-11-06] MEDS ORDERED: ATROPINE ABBOJECT 1 MG/10 ML SYRINGE IVP PRN (13:51)
[2022-11-06] MEDS ORDERED: HYDROmorphone 0.5 MG/0.5 ML SYRINGE IVP PRN (13:51)
[2022-11-06] MEDS ORDERED: MORPHINE 2 MG/ML CARPUJECT IVP PRN (13:51)
[2022-11-06] MEDS ORDERED: LACTATED RINGERS 1,000 ML IV SCH (14:00)
[2022-11-06] MEDS ORDERED: HYDROcod/ACETAM 5/325 MG TABLET PO PRN (14:16)
[2022-11-06] MEDS ORDERED: LACTATED RINGERS 400 ML IV ONE (14:28)
--- NOTE | 2022-11-06 14:38 | OPERATIVE REPORT ---
Operative Report - General Procedure Date: 11/06/22 Planned Procedure: removal left forearm nodule and left flank 4 cm lipoma Pre-Op Diagnosis: left forearm foreign body and left flank 4 cm subcutatseous lipoma Procedure Performed: removal foreign body and excision lipoma Post Op Diagnosis: same - Procedure Note Primary Surgeon: chente hancock Anesthesia Technique: General LMA, Local Pathology: not sent Estimated Blood Loss (mL): 2 Drain/Tube Type: Other (none) Indications: painful lumps Findings: sliver and benign lipoma Complications: none - Other Other Information/Narrative: The patient was properly identified brought to the operating room and placed in supine position. Laryngeal mask anesthesia was induced. Left side was bumped upwards slightly. Left arm was placed over her the abdomen. She was prepped and draped in a sterile fashion. Antibiotics were not given. Sequential compression devices were used. Local anesthetic was given. A vertical 1.5 cm incision was made over the palpable left forearm nodule. Dissection proceeded with cutting current followed by gentle blunt dissection. A sliver consistent with her history of bamboo sliver injury was removed. This was below the fascia. There was some scarring of musculature. Additional firmness was present. Area was carefully inspected. Additional firmness was normal tendon. Fascia was then closed with interrupted 3-0 Vicryl suture. Buried interrupted subdermal 3-0 Vicryl sutures were then placed. Skin was closed with a running 4-0 Monocryl subcuticular suture. Dressing was applied. The left flank subcutaneous lipoma was then addressed. A 3.5 cm incision was made. The lipoma was removed with gentle retraction and cutting current cautery. Subcutaneous tissue was closed with interrupted 2-0 Vicryl suture. Buried interrupted subdermal 3-0 Vicryl sutures were then placed. Skin was closed with a running 4-0 Monocryl subcuticular suture. Dressing again applied. She tolerated the procedure well was awakened and brought to recovery in good condition
[2022-11-06 14:53] VITALS: BP 143/75
--- NOTE | 2022-11-06 15:28 | ANESTHESIA POST OP EVALUATION ---
Anesthesia Post Eval - Post Anesthesia Eval Vitals: Last Vital Signs Temp 36.4 C L 11/06/22 15:14 Pulse 70 11/06/22 15:14 Resp 14 11/06/22 15:14 BP 143/75 H 11/06/22 14:53 Pulse Ox 100 11/06/22 15:14 O2 Flow Rate CV Function Including HR & BP: Stable Pain Control: Satisfactory Nausea & Vomiting: Negative Mental Status: Baseline Respiratory Status: Airway Patent Hydration Status: Satisfactory Anesthesia Complications: None
== END 2022-11-06 11:52 | disposition home or self-care (01) ==
LOC: SDS 11:51
PROVIDERS: ATTEND Surgery
PROC: 0JB80ZZ Excision of Abdomen Subcutaneous Tissue and Fascia, Open Approach (ICD-10-PCS; 2022-11-06)
PROC: 0JCH0ZZ Extirpation of Matter from Left Lower Arm Subcutaneous Tissue and Fascia, Open Approach (ICD-10-PCS; principal; 2022-11-06 12:45)
DX: D17.1 Benign lipomatous neoplasm of skin and subcutaneous tissue of trunk (principal); M79.5 Residual foreign body in soft tissue; Z87.891 Personal history of nicotine dependence
CPT/HCPCS: 21931; 25248; J7120

== ENCOUNTER 2022-11-26 07:28 | Outpatient (CLI) | payer MEDICAID ==
--- NOTE | 2022-11-26 17:40 | Ultrasound Report ---
PROCEDURE: Abdomen Limited INDICATIONS: LOWER ABD PAIN TECHNIQUE: Real-time focused scanning was performed of the abdomen, with image documentation. COMPARISONS: None. FINDINGS: Focused ultrasound examination of left abdomen shows spleen measures 8.5 x 5.7 x 4.5 cm in size and i s within normal limits. Left kidney measures 10.75 cm in length and 2.13 cm in renal cortical thickness. No hydronephrosis or nephrolithiasis. No solid-appearing renal lesion. IMPRESSION: No abnormality is seen in left side of abdomen. Reviewed by: Braden King MD on 11/26/2022 5:38 PM PDT Approved by: Braden King MD on 11/26/2022 5:38 PM PDT Station ID: [id number]
== END 2022-11-26 07:29 | disposition home or self-care (01) ==
LOC: DI 07:28
PROVIDERS: ATTEND Nurse Practitioner Acute Care
DX: R10.32 Left lower quadrant pain (principal)

== ENCOUNTER 2023-02-20 08:00 | Day surgery (SDC) | payer MEDICAID ==
[2023-02-20] MEDS ORDERED: LACTATED RINGERS 1,000 ML IV ONE (08:05)
--- NOTE | 2023-02-20 08:28 | ANESTHESIA ---
Pre-Anesthesia VS, & Labs - Diagnosis hx colon polyps - Procedure colonoscopy Vital Signs: Temp Pulse Resp BP Pulse Ox O2 Flow Rate 36.3 C L 56 L 12 127/72 99 0 02/20/23 08:18 02/20/23 08:18 02/20/23 08:18 02/20/23 08:18 02/20/23 08:18 02/20/23 08:18 Height: 5 ft 4 in Weight (kg): 52 kg Body Mass Index: 19.6 BMI Classification: Normal - NPO >8 hours - Is Patient ?: No - Lab Results Lab results reviewed: Yes Home Medications and Allergies Aspirin [Vazalore] 81 mg PO DAILY 10/27/22 Allergies/Adverse Reactions: Allergies Allergy/AdvReac Type Severity Reaction Status Date / Time morphine AdvReac Nausea Verified 02/19/23 13:12 Anes History & Medical History - Anesthetic History Anesthesia Complications: reports: No previous complications Family history of Anesthesia Complications: Denies Family history of Malignant Hyperthermia: Denies - Medical History Cardiovascular: reports: None (pt denies) Pulmonary: reports: None Gastrointestinal: reports: Chronic constipation Urinary: reports: None Neuro: reports: None Musculoskeletal: reports: Osteoarthritis, Osteoporosis Endocrine/Autoimmune: reports: None Blood Disorders: reports: None Skin: reports: None Smoking Status: Former smoker - Surgical History General: reports: Appendectomy, Other Cardiothoracic: reports: Vascular surgery Gynecologic: reports: Other Orthopedic: reports: Carpal Tunnel surgery, Spine surgery, Other Exam General: Alert, Oriented x3, Cooperative Dental: Dentures full Upper, Partials Lower Mouth Openin Fingerbreadth Neck Mobility: Normal Mallampati classification: II Thyromental Distance: 4-6 cm Respiratory: Lungs clear Cardiovascular: Regular rate Plan Anesthesia Type: General, MAC Consent for Procedure(s) Verified and Reviewed: Yes Code Status: Attempt Resuscitation ASA classification: 2-Mild systemic disease Is this case an emergency?: No
[2023-02-20] MEDS ORDERED: PROPOFOL 500 MG/50 ML 500 MG/50 ML VIAL ONE (08:45)
--- NOTE | 2023-02-20 08:50 | HISTORY & PHYSICAL EXAMINATION ---
Chief Complaint - Chief Complaint Chief Complaint: here for colonoscopy History of Present Illness - History Obtained From Records Reviewed: yes History obtained from: pt Exam Limitations: none - History of Present Illness HPI Comment/Other: history colon polyps and bleeding hemorrhoids History - Past Medical History Cardiovascular: reports: None (pt denies) Respiratory: reports: None Neuro: reports: None Endocrine/Autoimmune: reports: None GI: reports: Chronic constipation : reports: None HEENT: reports: None Psych: reports: None, Depression Musculoskeletal: reports: Osteoarthritis, Osteoporosis Derm: reports: None MRSA Hx?: No - Past Surgical History General: reports: Appendectomy, Other Ortho: reports: Carpal Tunnel surgery, Spine surgery, Other /[employer]: reports: Other Cardiovascular: reports: Vascular surgery - Family & Social History Family History Comment/Other: father: Diabetes mellitus type 2. grandmother: heart attack, stroke. Hx of stomach cancer in the family Social History Notes: Live with boyfriend. 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 In records there is reported history of marijana (smoked) and amphetamines in the past. She currently does not smoke but had smoked occasionally in the past. She drank wine in the past. - POLST Patient has POLST: No Meds/Allgy - Home Medications Home Medications: Ambulatory Orders Medication Instructions Recorded Confirmed Aspirin [Vazalore] 81 mg PO DAILY 10/27/22 02/20/23 - Allergies Allergies/Adverse Reactions: Allergies Allergy/AdvReac Type Severity Reaction Status Date / Time morphine AdvReac Nausea Verified 02/20/23 08:31 Review of Systems - Other Findings Other Findings: 10 pt ros as above otherwise unremarkable Exam - Vital Signs Vital Signs: Vital Signs x48h Temp Pulse Resp BP Pulse Ox O2 Flow Rate 02/20/23 08:18 36.3 C L 56 L 12 127/72 99 0 - Physical Exam General Appearance: positive: No acute distress, Alert Eyes Bilateral: positive: PERRL, EOMI ENT: positive: No signs of dehydration Neck: positive: No JVD, Trachea midline Respiratory: positive: Breath sounds nml Cardiovascular: positive: Regular rate & rhythm Abdomen: positive: No distention Neurologic/Psychiatric: positive: Oriented x3 Conclusion/Plan - Problem List (1) History of colon polyps Conclusion/Plan: plan colonoscopy. parq held and consent obtained - Lab Results Lab results reviewed: Yes
[2023-02-20] MEDS ORDERED: GLYCOPYRROLATE 1 MG/5 ML VIAL ONE (09:06)
[2023-02-20] MEDS ORDERED: LACTATED RINGERS 100 ML IV ONE (09:44)
[2023-02-20 09:58] VITALS: O2SAT 100
[2023-02-20 10:18] VITALS: BP 108/69
--- NOTE | 2023-02-20 11:26 | ANESTHESIA POST OP EVALUATION ---
Anesthesia Post Eval - Post Anesthesia Eval Vitals: Last Vital Signs Temp 36 C L 02/20/23 10:11 Pulse 66 02/20/23 10:11 Resp 16 02/20/23 10:11 BP 108/69 02/20/23 10:11 Pulse Ox 100 02/20/23 10:11 O2 Flow Rate 0 02/20/23 08:18 CV Function Including HR & BP: Stable Pain Control: Satisfactory Nausea & Vomiting: Negative Mental Status: Baseline Respiratory Status: Airway Patent Hydration Status: Satisfactory Anesthesia Complications: None
== END 2023-02-20 08:01 | disposition home or self-care (01) ==
LOC: SDS 08:00
PROVIDERS: ATTEND Surgery
DX: Z86.010 Personal history of colon polyps (principal); K57.30 Diverticulosis of large intestine without perforation or abscess without bleeding; K64.9 Unspecified hemorrhoids; K59.09 Other constipation
CPT/HCPCS: 45378; J7120

== ENCOUNTER 2023-04-28 15:07 | Outpatient (CLI) | payer MEDICAID ==
--- NOTE | 2023-04-28 16:52 | Ultrasound Report ---
PROCEDURE: Pelvic w/Transvaginal INDICATIONS: POST MENOPAUSAL BLEEDING TECHNIQUE: Real-time scanning was performed of the pelvic organs, with image documentation. Additional endovagi nal scanning was necessary due to incomplete visualization of the adnexal and endometrial structures by transabdominal scanning. COMPARISON: None. FINDINGS: Uterus: Uterus is anteverted and normal in size at 6.5 x 3.4 x 4.3 cm. The myometrium is heterogene ous. The endometrium measures 2.3 mm in combined thickness. No fibroids Ovaries: The right ovary measures 1.5 x 1.4 x 1.6 cm, with a calculated ovarian volume of 1.8 cc. T he left ovary is not seen, possibly secondary to overlying bowel or involutional change. Other: No pathologic free abdominal or pelvic fluid. IMPRESSION: Unremarkable pelvic ultrasound. Reviewed by: Felix Wright MD on 04/28/2023 4:51 PM PDT Approved by: Felix Wright MD on 04/28/2023 4:51 PM PDT Station ID: [id number]
== END 2023-04-28 15:08 | disposition home or self-care (01) ==
LOC: DI 15:07
PROVIDERS: ATTEND Nurse Practitioner
DX: N95.0 Postmenopausal bleeding (principal)

== ENCOUNTER 2023-05-29 08:00 | Outpatient (CLI) | payer MEDICAID ==
[2023-05-29 15:47] LABS: BILIRUBIN,URINE NEGATIVE (NEGATIVE); GLUCOSE, URINE (UA) NEGATIVE (NEGATIVE); KETONES,URINE (UA) NEGATIVE (NEGATIVE); LEUKOCYTE ESTERASE, URINE NEGATIVE (NEGATIVE); NITRITE,URINE NEGATIVE (NEGATIVE); OCCULT BLOOD,URINE NEGATIVE (NEGATIVE); PROTEIN,URINE NEGATIVE (NEGATIVE); UROBILINOGEN,URINE 0.2 (NORMAL) E.U./dL (NORMAL)
[2023-05-29 16:15] LABS: BACTERIA,URINE Rare /HPF (None Seen); CLARITY,URINE CLEAR (CLEAR); RBC,URINE None Seen /HPF (0-5); SQUAMOUS EPITHELIAL CELL,UR MOD Squamous (<= Few); WBC,URINE 0-3 /HPF (0-5)
[2023-05-29 17:54] LABS: BACTERIAL VAGINOSIS DNA NEGATIVE (NEGATIVE); CANDIDA GLABRATA DNA NEGATIVE (NEGATIVE); CANDIDA GROUP DNA NEGATIVE (NEGATIVE); CANDIDA KRUSEI DNA NEGATIVE (NEGATIVE); TRICHOMONAS VAGINALIS DNA NEGATIVE (NEGATIVE)
== END 2023-05-29 23:59 | disposition home or self-care (01) ==
LOC: LAB.WC 08:00
PROVIDERS: ATTEND Nurse Practitioner
DX: R30.0 Dysuria (principal)
CPT/HCPCS: 81001; 81514; 87086

== ENCOUNTER 2023-06-25 08:47 | Day surgery (SDC) | payer MEDICAID, OTHER ==
[2023-06-25] MEDS ORDERED: LACTATED RINGERS 1,000 ML IV ONE ×4 (09:01→11:55)
[2023-06-25 09:30] LABS: BASOPHILS % (AUTO) 0.6 %; EOSINOPHILS # (AUTO) 0.2 10^3/uL (0.0-0.7); EOSINOPHILS % (AUTO) 2.7 %; HCT - HEMATOCRIT 38.4 % (37.0-47.0); HGB - HEMOGLOBIN 12.6 g/dL (12.0-16.0); LYMPHOCYTES # (AUTO) 1.6 10^3/uL (1.5-3.5); LYMPHOCYTES % (AUTO) 25.7 %; MEAN CORPUSCULAR HEMOGLOBIN 29.4 pg (27.0-31.0); MEAN CORPUSCULAR HGB CONC 32.8 g/dL (32.0-36.0); MEAN CORPUSCULAR VOLUME 89.7 fL (81.0-99.0); MEAN PLATELET VOLUME 8.5 fL (7.9-10.8); MONOCYTES # (AUTO) 0.4 10^3/uL (0.0-1.0); MONOCYTES % (AUTO) 6.5 %; NEUTROPHILS % (AUTO) 63.9 %; PLT - PLATELET COUNT 290 10^3/uL (130-450); RED BLOOD COUNT 4.28 10^6/uL (4.20-5.40); RED CELL DISTRIBUTION WIDTH 13.2 % (12.0-15.0); WHITE BLOOD COUNT 6.3 x10^3/uL (4.8-10.8)
[2023-06-25 09:44] LABS: ALBUMIN 4.4 g/dL (3.2-5.5); ALBUMIN/GLOBULIN RATIO 1.9 (1.0-2.2); BILIRUBIN,TOTAL 0.4 mg/dL (0.2-1.0); CALCIUM 9.4 mg/dL (8.5-10.3); CREATININE 0.6 mg/dL (0.6-1.3); POTASSIUM 4.1 mmol/L (3.5-4.5); TOTAL PROTEIN 6.7 g/dL (6.4-8.9)
[2023-06-25] MEDS ORDERED: ATROPINE ABBOJECT 1 MG/10 ML SYRINGE IVP PRN (09:53)
[2023-06-25] MEDS ORDERED: HYDROmorphone 0.5 MG/0.5 ML SYRINGE IVP PRN (09:53)
[2023-06-25] MEDS ORDERED: MORPHINE 2 MG/ML CARPUJECT IVP PRN (09:53)
[2023-06-25] MEDS ORDERED: ONDANSETRON 4 MG/2 ML VIAL IVP PRN (09:53)
[2023-06-25] MEDS ORDERED: METOCLOPRAMIDE 10 MG/2 ML VIAL IVP PRN (09:53)
[2023-06-25] MEDS ORDERED: ePHEDrine 50 MG/ML VIAL IVP PRN (09:53)
[2023-06-25] MEDS ORDERED: NALOXONE 0.4 MG/ML VIAL IVP PRN (09:53)
[2023-06-25] MEDS ORDERED: fentaNYL 100 MCG/2 ML VIAL IVP PRN (09:53)
--- NOTE | 2023-06-25 09:53 | ANESTHESIA ---
Pre-Anesthesia VS, & Labs - Diagnosis post menopausal bleeding - Procedure hysteroscopy D&C, endometrial biopsy Vital Signs: Temp Pulse Resp BP Pulse Ox O2 Flow Rate 36.3 C L 64 10 L 117/72 96 06/25/23 09:01 06/25/23 09:01 06/25/23 09:01 06/25/23 09:01 06/25/23 09:01 Height: 5 ft 4 in Weight (kg): 57 kg Body Mass Index: 21.5 BMI Classification: Normal - NPO >8 hours - Is Patient ?: No - Lab Results Current Lab Results: Laboratory Tests 06/25/23 09:20: Sodium 138, Potassium 4.1, Chloride 106, Carbon Dioxide 25, Anion Gap 7.0, BUN 14, Creatinine 0.6, Estimated GFR (MDRD) 101, Glucose 99, Calcium 9.4, Total Bilirubin 0.4, AST 20, ALT 18, Alkaline Phosphatase 77, Total Protein 6.7, Albumin 4.4, Globulin 2.3, Albumin/Globulin Ratio 1.9 06/25/23 09:20: WBC 6.3, RBC 4.28, Hgb 12.6, Hct 38.4, MCV 89.7, MCH 29.4, MCHC 32.8, RDW 13.2, Plt Count 290, MPV 8.5, Neut # (Auto) 4.0, Lymph # (Auto) 1.6, [place] # (Auto) 0.4, Eos # (Auto) 0.2, Baso # (Auto) 0.0, Absolute Nucleated RBC 0.00, Nucleated RBC % 0.0 Lab results reviewed: Yes Fish Bones: 06/25/23 09:20 06/25/23 09:20 Home Medications and Allergies Home Medications: Ambulatory Orders Metoprolol Succinate [Toprol Xl] 25 mg PO HS 06/18/23 Rosuvastatin Calcium [Crestor] 5 mg PO HS 06/18/23 Aspirin [Vazalore] 81 mg PO DAILY 10/27/22 Metoprolol Succinate [Toprol Xl] 25 mg PO HS 06/18/23 Rosuvastatin Calcium [Crestor] 5 mg PO HS 06/18/23 Allergies/Adverse Reactions: Allergies Allergy/AdvReac Type Severity Reaction Status Date / Time morphine AdvReac Intermediate Nausea Verified 06/24/23 13:11 Anes History & Medical History - Anesthetic History Anesthesia Complications: reports: No previous complications Family history of Anesthesia Complications: Denies Family history of Malignant Hyperthermia: Denies - Medical History Cardiovascular: reports: High cholesterol, Angina, [place], Other Pulmonary: reports: None, Other Gastrointestinal: reports: None Urinary: reports: None Neuro: reports: None Musculoskeletal: reports: Osteoarthritis, Osteoporosis Endocrine/Autoimmune: reports: None Blood Disorders: reports: None Skin: reports: None Smoking Status: Former smoker - Surgical History General: reports: Appendectomy, Colonoscopy, EGD, Other Cardiothoracic: reports: Vascular surgery, Other Gynecologic: reports: Other Orthopedic: reports: Carpal Tunnel surgery, Spine surgery, Other Exam General: Alert, Oriented x3, Cooperative Dental: Dentures full Upper, Dentures full Lower Mouth Openin Fingerbreadth Neck Mobility: Normal Mallampati classification: II Thyromental Distance: 4-6 cm Respiratory: Lungs clear, Normal breath sounds, No respiratory distress Cardiovascular: Regular rate Neurological: Normal speech Mental/Cognitive Status: Alert/Oriented X3, Normal for patient Cognitive Status: Within normal limits Plan Anesthesia Type: General Consent for Procedure(s) Verified and Reviewed: Yes Code Status: Attempt Resuscitation ASA classification: 3-Severe systemic disease Is this case an emergency?: No
[2023-06-25] MEDS ORDERED: LACTATED RINGERS 1,000 ML IV SCH (10:00)
[2023-06-25] MEDS ORDERED: MIDAZOLAM 2 MG/2 ML VIAL ONE (10:06)
[2023-06-25] MEDS ORDERED: fentaNYL 100 MCG/2 ML VIAL ONE (10:06)
[2023-06-25] MEDS ORDERED: PROPOFOL 200 MG/20 ML VIAL IVP ONE (10:07)
--- NOTE | 2023-06-25 12:03 | OPERATIVE REPORT ---
Operative Report - General Procedure Date: 06/25/23 Planned Procedure: hysteroscopy, dilation and curretage Pre-Op Diagnosis: post menopausal bleeding Procedure Performed: dilation hysteroscopy and curretage. Post Op Diagnosis: NORMA, atrophy - Procedure Note Primary Surgeon: Abdirahman Secondary Surgeon: danial Anesthesia Provider: Yayo Anesthesia Technique: General LMA Pathology: endometerial currettings. Estimated Blood Loss (mL): 0 Urine Output (mL): 0 Indications: post menopausal bleeding Findings: vulvar atrophy vaginal atrophy no mesh erosion normal appearing cervix normal appearing endometrium no polyps mostly atrophic perhaps one area at fundus of hyperplasia both ostea seen without difficulty. Complications: none apparent - Other Other Information/Narrative: OPERATIVE NOTE Pre-operative diagnosis: 1. Post menopausal bleeding Procedure: Diagnostic hysteroscopy, dilation and curettage Post-operative diagnosis: NORMA Surgeon: Abdirahman Roll Finisher: Danial Anesthesia: LMA Findings: EUA: small uterus, no adnexal masses, normal cervix Speculum: normal vagina, normal cervix - with marked atrophy Hysteroscope: normal vagina, no mesh erosion seen. one area of apparent irritation just left of midline, midway up the vagina -- though, no mesh seen. normal ostea B/L, normal fundus normal endocervical canal Specimen: endometrial curettage Complications: None apparent EBL: minimal Hysteroscopic fluid in and out were equitable. UOP: none, pt voided prior to case Dispo: Pt to PACU in stable condition Procedure in detail: After risks benefits and alternatives, as well as indication for procedure and anticipated post-operative recovery course, were discussed with the patient info rmed consent was obtained and patient was taken to the operating theater where general anesthesia with LMA was administered without complication. Pt placed in dorsal lithotomy position, SCDs in place and running, and bimanual exam revealed the aforementioned findings. Munguia speculum placed in posterior vagina, and anterior lip of cervix grasped with tenaculum, then switched to zelda. Cervix dilated to accomodate 5.5mm hysteroscope. hysteroscope then entered without difficulty. aforementioned findings noted. hysteroscope removed. Curettage done 360' uterine cry. All instruments removed, specimen sent to pathology. Pictures taken of findings. All counts correct. Pt awaked from anesthesia. Pt to PACU in stable condition.
[2023-06-25 12:13] VITALS: O2SAT 97
--- NOTE | 2023-06-25 12:27 | ANESTHESIA POST OP EVALUATION ---
Anesthesia Post Eval - Post Anesthesia Eval Vitals: Last Vital Signs Temp 36.3 C L 06/25/23 12:20 Pulse 60 06/25/23 12:20 Resp 14 06/25/23 12:20 BP 138/87 H 06/25/23 12:20 Pulse Ox 97 06/25/23 12:20 O2 Flow Rate CV Function Including HR & BP: Stable Pain Control: Satisfactory Nausea & Vomiting: Negative Mental Status: Baseline Respiratory Status: Airway Patent Hydration Status: Satisfactory Anesthesia Complications: None
[2023-06-25 12:53] VITALS: BP 137/73
== END 2023-06-25 08:48 | disposition home or self-care (01) ==
LOC: SDS 08:47
PROVIDERS: ATTEND Obstetrics & Gynecology
PROC: 0UDB8ZZ Extraction of Endometrium, Via Natural or Artificial Opening Endoscopic (ICD-10-PCS; principal; 2023-06-25 10:15)
DX: N95.0 Postmenopausal bleeding (principal); N95.2 Postmenopausal atrophic vaginitis
CPT/HCPCS: 36415; 58558; 80053; 85025; J7120